=== PATIENT | female | born 1965 | race Caucasian/White ===

== ENCOUNTER 2017-09-17 19:33 | Emergency (ER) | payer OTHER ==
[~2017-09-17] VITALS: Ht 152.4 cm; Wt 91.2 kg
[2017-09-17] MEDS ORDERED: ATEN25 PO (20:02)
[2017-09-17] MEDS ORDERED: METF500 PO (20:03)
[2017-09-17] MEDS ORDERED: LISI20 PO (20:03)
[2017-09-17] MEDS ORDERED: Crutch1 EACH MISC (23:25)
== END 2017-09-17 23:30 | disposition home or self-care (01) ==
LOC: ER 19:33
DX: S80.12XA Contusion of left lower leg, initial encounter (principal); W19.XXXA Unspecified fall, initial encounter; Z79.899 Other long term (current) drug therapy; Z79.84 Long term (current) use of oral hypoglycemic drugs; E11.40 Type 2 diabetes mellitus with diabetic neuropathy, unspecified
CPT/HCPCS: 73564; 73590; 93971; J7030

== ENCOUNTER 2018-08-12 04:30 | Inpatient (IN) | payer OTHER ==
[~2018-08-12] VITALS: Ht 154.9 cm; Wt 101.9 kg
[~2018-08-12 04:30] MED LIST: ATEN25 PO; CEPH500 PO; CYCL10 PO; Crutch1 EACH MISC; DOXY100 PO; LISI20 PO; METF500 PO; POTA10T PO
[2018-08-12 06:48] LABS: BASOPHILS ABSOLUTE AUTO 0.04 K/mm3 (0.00-0.23); BASOPHILS PERCENT AUTO 0 % (0-2); EOSINOPHILS ABSOLUTE AUTO 0.03 K/mm3 (0.00-0.68); EOSINOPHILS PERCENT AUTO 0 % (0-6); Hematocrit 39.6 % (33.0-51.0); Hemoglobin 13.6 g/dL (11.5-16.0); IMMATURE GRAN ABSOLUTE AUTO 0.03 K/mm3 (0.00-0.10); IMMATURE GRAN PERCENT AUTO 0 % (0-1); LYMPHOCYTES ABSOLUTE AUTO 1.35 K/mm3 (0.84-5.20); LYMPHOCYTES PERCENT AUTO 15 % (21-46); MONOCYTES ABSOLUTE AUTO 1.23 K/mm3 (0.16-1.47); MONOCYTES PERCENT AUTO 13 % (4-13); Mean Corpuscular HGB 31.6 pg (26.0-34.0); Mean Corpuscular HGB Conc 34.3 g/dL (31.5-36.5); Mean Corpuscular Volume 92 fL (80-100); Mean Platelet Volume 9.7 fL (9.1-12.4); NEUTROPHILS ABSOLUTE AUTO 6.55 K/mm3 (1.96-9.15); NEUTROPHILS PERCENT AUTO 71 % (41-73); Platelet Count 122 K/mm3 (150-400); RDW Coefficient Variation 13.4 % (11.7-14.2); RDW Standard Deviation 45.1 fL (35.1-46.3); White Blood Cell Count 9.23 K/mm3 (4.00-11.30)
[2018-08-12 07:10] LABS: Alanine Aminotransfer (ALT/SGP 46 U/L (12-78); Albumin, Blood 2.9 g/dL (3.4-5.0); Albumin/Globulin Ratio 0.7 (0.8-1.8); Alk Phos 95 U/L (50-136); Anion Gap 7 mmol/L (6-16); Aspartate Aminotrans (AST/SGOT 40 U/L (12-37); Bilirubin, Total 1.5 mg/dL (0.1-1.0); Blood Urea Nitrogen 6 mg/dL (8-24); Bun/Creatinine Ratio 12.5 (12.0-20.0); CO2, Blood 26 mmol/L (21-32); Calcium, Blood 8.6 mg/dL (8.5-10.1); Chloride, Blood 105 mmol/L (98-108); Creatinine, Blood 0.48 mg/dL (0.40-1.00); Globulin, Blood 4.3 g/dL (2.2-4.0); Glomerular Filtration Rate >60 (60-); Glucose, Blood 100 mg/dL (70-99); Potassium, Blood 3.1 mmol/L (3.5-5.5); Sodium, Blood 138 mmol/L (136-145); Total Protein, Blood 7.2 g/dL (6.4-8.2)
[2018-08-12] MEDS ORDERED: Prinivil10 MG PO (13:09)
[2018-08-12] MEDS ORDERED: NITR100CA PO (13:09)
[2018-08-12] MEDS ORDERED: Pyridium100 MG PO (13:10)
[2018-08-12] MEDS ORDERED: METF500C PO (17:15)
[2018-08-12] MEDS ORDERED: GABA800 PO (17:16)
--- NOTE | 2018-08-12 19:00 | NUR ---
SHIFT SUMMARY: PT IS A&O. BED ALARM ON FOR SAFETY. CALL LIGHT IN REACH. SHE IS ABLE TO MAKE NEEDS KNOWN. TOLERATING PO INTAKE. WILL CTM UNTIL REPORT GIVEN TO NEXT RN.
[2018-08-12 20:28] LABS: Appearance, Urine Hazy (Clear); Bilirubin, Urine Neg (Neg); Blood, Urine 5+ (Neg); Color, Urine Amber (P-Yellow); Glucose Qualitative, Urine 4+ (Neg); Ketones, Urine Neg (Neg); Leukocyte Esterase, Urine 3+ (Neg); Nitrite, Urine Neg (Neg); Protein, Urine 2+ (Neg); Specific Gravity, Urine 1.005 (1.003-1.022); Urobilinogen, Urine 2+ (Normal)
[2018-08-12 20:39] LABS: Bacteria Many /hpf; Red Blood Cells, Urine TNTC /hpf (0-2); Squamous Epithelial Cells Few /hpf (Few)
[2018-08-13 04:56] LABS: BASOPHILS ABSOLUTE AUTO 0.03 K/mm3 (0.00-0.23); BASOPHILS PERCENT AUTO 1 % (0-2); EOSINOPHILS ABSOLUTE AUTO 0.09 K/mm3 (0.00-0.68); EOSINOPHILS PERCENT AUTO 2 % (0-6); Hematocrit 35.9 % (33.0-51.0); Hemoglobin 12.1 g/dL (11.5-16.0); IMMATURE GRAN ABSOLUTE AUTO 0.02 K/mm3 (0.00-0.10); IMMATURE GRAN PERCENT AUTO 0 % (0-1); LYMPHOCYTES ABSOLUTE AUTO 1.46 K/mm3 (0.84-5.20); LYMPHOCYTES PERCENT AUTO 24 % (21-46); MONOCYTES ABSOLUTE AUTO 0.72 K/mm3 (0.16-1.47); MONOCYTES PERCENT AUTO 12 % (4-13); Mean Corpuscular HGB 31.6 pg (26.0-34.0); Mean Corpuscular HGB Conc 33.7 g/dL (31.5-36.5); Mean Corpuscular Volume 94 fL (80-100); Mean Platelet Volume 9.1 fL (9.1-12.4); NEUTROPHILS ABSOLUTE AUTO 3.72 K/mm3 (1.96-9.15); NEUTROPHILS PERCENT AUTO 62 % (41-73); Platelet Count 94 K/mm3 (150-400); RDW Coefficient Variation 13.5 % (11.7-14.2); RDW Standard Deviation 46.4 fL (35.1-46.3); Red Blood Cell Count 3.83 M/mm3 (3.80-5.20); White Blood Cell Count 6.04 K/mm3 (4.00-11.30)
[2018-08-13 05:10] LABS: Anion Gap 7 mmol/L (6-16); Blood Urea Nitrogen 11 mg/dL (8-24); Bun/Creatinine Ratio 21.3 (12.0-20.0); CO2, Blood 26 mmol/L (21-32); Calcium, Blood 7.7 mg/dL (8.5-10.1); Chloride, Blood 107 mmol/L (98-108); Creatinine, Blood 0.52 mg/dL (0.40-1.00); Glomerular Filtration Rate >60 (60-); Glucose, Blood 113 mg/dL (70-99); Magnesium, Blood 1.8 mg/dL (1.6-2.4); Potassium, Blood 3.3 mmol/L (3.5-5.5); Sodium, Blood 140 mmol/L (136-145)
--- NOTE | 2018-08-13 05:44 | NUR ---
SHIFT SUMMARY PT VERY DROWSY. C/O PAIN IN L EAR AND MEDICATED PER EMAR X1 AND SHE FELL ASLEEP RIGHT AFTER ADMINISTRATION. SCD'S IN PLACE. SBA TO BSC. SHE SLEPT THROUGH NIGHT. CALL LIGHT IN REACH
--- NOTE | 2018-08-13 16:36 | NUR ---
SHIFT SUMMARY PT IS ADMITTED FOR CELLULITIS OF LFT EAR. STATES SHE HAS SEVERE PAIN FREQUENTLY. SHE HAS A HX OF DM 2 AND IS ACHS - LOW SS. . HX INCLUDES METH USE, PANCREATIC TUMOR, ME, CIRROSIS FROM ETOH AND HEP C. LR IS RUNNING AT 150 ML/HR. SHE IS A&O X4.SHE IS ON ZOSYN IV ANTIBIOTICS. ADA DIET. SHE IS A 1 PERSON ASSIST TO BSC DUE TO DROWSINESS. SHE HAS NOT NEEDED INSULIN COVERAGE THIS SHIFT.
[2018-08-14 05:31] LABS: BASOPHILS ABSOLUTE AUTO 0.04 K/mm3 (0.00-0.23); BASOPHILS PERCENT AUTO 1 % (0-2); EOSINOPHILS ABSOLUTE AUTO 0.18 K/mm3 (0.00-0.68); EOSINOPHILS PERCENT AUTO 4 % (0-6); Hematocrit 36.5 % (33.0-51.0); IMMATURE GRAN ABSOLUTE AUTO 0.01 K/mm3 (0.00-0.10); IMMATURE GRAN PERCENT AUTO 0 % (0-1); LYMPHOCYTES ABSOLUTE AUTO 1.37 K/mm3 (0.84-5.20); LYMPHOCYTES PERCENT AUTO 27 % (21-46); MONOCYTES PERCENT AUTO 14 % (4-13); Mean Corpuscular HGB 31.1 pg (26.0-34.0); Mean Corpuscular HGB Conc 32.9 g/dL (31.5-36.5); Mean Corpuscular Volume 95 fL (80-100); Mean Platelet Volume 9.8 fL (9.1-12.4); NEUTROPHILS ABSOLUTE AUTO 2.77 K/mm3 (1.96-9.15); NEUTROPHILS PERCENT AUTO 55 % (41-73); Platelet Count 98 K/mm3 (150-400); RDW Coefficient Variation 13.5 % (11.7-14.2); RDW Standard Deviation 46.6 fL (35.1-46.3); Red Blood Cell Count 3.86 M/mm3 (3.80-5.20); White Blood Cell Count 5.07 K/mm3 (4.00-11.30)
[2018-08-14 05:53] LABS: Alanine Aminotransfer (ALT/SGP 34 U/L (12-78); Albumin, Blood 2.2 g/dL (3.4-5.0); Albumin/Globulin Ratio 0.6 (0.8-1.8); Alk Phos 136 U/L (50-136); Anion Gap 5 mmol/L (6-16); Aspartate Aminotrans (AST/SGOT 33 U/L (12-37); Bilirubin, Total 0.5 mg/dL (0.1-1.0); Blood Urea Nitrogen 12 mg/dL (8-24); Bun/Creatinine Ratio 22.8 (12.0-20.0); CO2, Blood 29 mmol/L (21-32); Calcium, Blood 8.1 mg/dL (8.5-10.1); Chloride, Blood 109 mmol/L (98-108); Creatinine, Blood 0.53 mg/dL (0.40-1.00); Globulin, Blood 3.7 g/dL (2.2-4.0); Glomerular Filtration Rate >60 (60-); Glucose, Blood 146 mg/dL (70-99); Potassium, Blood 3.3 mmol/L (3.5-5.5); Sodium, Blood 143 mmol/L (136-145); Total Protein, Blood 5.9 g/dL (6.4-8.2)
--- NOTE | 2018-08-14 07:20 | NUR ---
SHIFT SUMMARY PT A/O. INDEPENDENT TO BA. HAD AN INCIDENT OF EXPLOSIVE DIARRHEA SHE WAS INCONT OF. C/O PAIN X1 AND MEDICATED PER EMAR AND SHE WAS ABLE TO SLEEP AFTER THAT. CALL LIGHT IN REACH
--- NOTE | 2018-08-14 16:38 | NUR ---
SHIFT SUMMARY ADMITTED FOR CELLULITIS. IV ANTIBIOTIC TX. PT STILL HAVING DIARRHEA THROUGHOUT SHIFT, ALTHOUGH THE VOLUME HAS REDUCED SIGNIFICANTLY. PT'S PAIN IS WELL CONTROLLED WITH TOREDOL. PT WILL NOT FOLLOW ADA DIET, HER FAMILY DOES BRING IN CANDY AND SODAS, FAST FOOD FROM OUTSIDE THE HOSPITAL. HER BLOOD SUGARS HAVE NOT BEEN ELEVATED OR REQUIRED INSULIN COVERAGE. PT IS A FULL CODE, HX OF DM2 (ACHS ON LOW SS). PT RESPONDS WELL TO THE EARDROPS PRESCRIBED FOR HER INVOLVED EAR. NO REMARKABLE CHANGES, WILL CONTINUE TO MONITOR.
--- NOTE | 2018-08-14 20:47 | NUR ---
CALL LIGHT IN REACH, INDEPENDANT. DOESNT WANT A SHOWER NOR TEETH BRUSHED. IN BED WATCHING TV. ATE DINNER (100%) DRANK 400 ML.
--- NOTE | 2018-08-15 04:22 | NUR ---
PATIENT REPORRTS NAUSEA, GAVE ZOFRAN PER EMAR
[2018-08-15 04:55] LABS: BASOPHILS ABSOLUTE AUTO 0.03 K/mm3 (0.00-0.23); BASOPHILS PERCENT AUTO 1 % (0-2); EOSINOPHILS PERCENT AUTO 6 % (0-6); Hematocrit 35.7 % (33.0-51.0); IMMATURE GRAN ABSOLUTE AUTO 0.01 K/mm3 (0.00-0.10); IMMATURE GRAN PERCENT AUTO 0 % (0-1); LYMPHOCYTES ABSOLUTE AUTO 1.12 K/mm3 (0.84-5.20); LYMPHOCYTES PERCENT AUTO 32 % (21-46); MONOCYTES ABSOLUTE AUTO 0.45 K/mm3 (0.16-1.47); MONOCYTES PERCENT AUTO 13 % (4-13); Mean Corpuscular HGB 31.7 pg (26.0-34.0); Mean Corpuscular HGB Conc 33.6 g/dL (31.5-36.5); Mean Corpuscular Volume 94 fL (80-100); Mean Platelet Volume 9.6 fL (9.1-12.4); NEUTROPHILS PERCENT AUTO 48 % (41-73); Platelet Count 101 K/mm3 (150-400); RDW Coefficient Variation 13.6 % (11.7-14.2); RDW Standard Deviation 47.3 fL (35.1-46.3); Red Blood Cell Count 3.78 M/mm3 (3.80-5.20); White Blood Cell Count 3.51 K/mm3 (4.00-11.30)
[2018-08-15 05:15] LABS: Alanine Aminotransfer (ALT/SGP 34 U/L (12-78); Albumin, Blood 2.1 g/dL (3.4-5.0); Albumin/Globulin Ratio 0.6 (0.8-1.8); Alk Phos 117 U/L (50-136); Anion Gap 7 mmol/L (6-16); Aspartate Aminotrans (AST/SGOT 49 U/L (12-37); Bilirubin, Total 0.5 mg/dL (0.1-1.0); Blood Urea Nitrogen 11 mg/dL (8-24); Bun/Creatinine Ratio 22.1 (12.0-20.0); CO2, Blood 27 mmol/L (21-32); Calcium, Blood 8.2 mg/dL (8.5-10.1); Chloride, Blood 110 mmol/L (98-108); Globulin, Blood 3.8 g/dL (2.2-4.0); Glomerular Filtration Rate >60 (60-); Glucose, Blood 108 mg/dL (70-99); Potassium, Blood 3.6 mmol/L (3.5-5.5); Sodium, Blood 144 mmol/L (136-145); Total Protein, Blood 5.9 g/dL (6.4-8.2)
[2018-08-15] MEDS ORDERED: CIPDEXSU LEFTEAR (13:10)
[2018-08-15] MEDS ORDERED: HYDR1TAB94 PO (13:10)
[2018-08-15] MEDS ORDERED: Amox Tr-K Clv1 EAC2 PO (13:11)
--- NOTE | 2018-08-15 14:55 | NUR ---
PT DISCHARGED THE PT DISCHARGED, WHILE THIS NURSE WAS CARING FOR ANOHER PT THE PT TOOK HER DISCHARGE INSTRUCTIONS AND PERSCRIPTION WITHOUT THE VERBAL DISCHARGE EDUCATION, THE PT REPORTED HAVEING A HEADAHE JUST BEFORE LEAVEING AND WAS MEDICATED FOR PAIN, THE PT APPEARED TO BE STEADY ON HER FEET AND APPEARED TO BE BREATHING EASILY ON RA
== END 2018-08-15 14:59 | disposition home or self-care (01) | DRG 155 ==
LOC: ER 04:30 → ERHOLD 04:31 → MEDS 17:01 → ENPENDDIS 08-15 12:51 → MEDS 08-15 14:59
PROVIDERS: Emergency Medicine; Internal Medicine; ADMIT Internal Medicine
DX: H60.12 Cellulitis of left external ear (principal); N39.0 Urinary tract infection, site not specified; H61.002 Unspecified perichondritis of left external ear; E11.9 Type 2 diabetes mellitus without complications; K70.30 Alcoholic cirrhosis of liver without ascites; I10 Essential (primary) hypertension; I25.2 Old myocardial infarction; Z86.718 Personal history of other venous thrombosis and embolism; B19.20 Unspecified viral hepatitis C without hepatic coma
CPT/HCPCS: 36415; 71046; 80048; 80053; 81001; 82947; 83036; 83605; 83735; 85025; 87040; 87077; 87086; 87186; 93005; 93010; 96365; 96375; 99284-25; A9270-GY; J0690; J1650; J1885; J2405; J2543; J3010; J7050; J7120

== ENCOUNTER → 2018-09-14 | Outpatient (CLI) | payer OTHER ==
[~2018-09-14] MED LIST changes: +Amox Tr-K Clv1 EAC2 PO; +CIPDEXSU LEFTEAR; +GABA800 PO; +HYDR1TAB94 PO; +METF500C PO; +NITR100CA PO; +Prinivil10 MG PO; +Pyridium100 MG PO
== END | disposition home or self-care (01) ==
LOC: LAB SHORT 17:53 → LAB EV 17:53
DX: R31.21 Asymptomatic microscopic hematuria (principal)
CPT/HCPCS: 87086

== ENCOUNTER 2019-01-20 02:39 | Emergency (ER) | payer OTHER ==
[~2019-01-20] VITALS: Ht 154.9 cm; Wt 93.0 kg
[2019-01-20 03:05] LABS: Source, Urine Clean Catch
[2019-01-20 03:07] LABS: Bilirubin, Urine Neg (Neg); Blood, Urine 4+ (Neg); Glucose Qualitative, Urine Neg (Neg); Ketones, Urine Neg (Neg); Leukocyte Esterase, Urine 3+ (Neg); Nitrite, Urine Neg (Neg); Protein, Urine Neg (Neg); Urobilinogen, Urine 1+ (Normal)
[2019-01-20 03:14] LABS: Appearance, Urine Hazy (Clear); Bacteria Mod /hpf; Color, Urine Yellow (P-Yellow); Squamous Epithelial Cells Rare /hpf (Few); White Blood Cells, Urine 25-50 /hpf (0-5)
[2019-01-20 03:23] LABS: BASOPHILS ABSOLUTE AUTO 0.04 K/mm3 (0.00-0.23); BASOPHILS PERCENT AUTO 1 % (0-2); EOSINOPHILS ABSOLUTE AUTO 0.16 K/mm3 (0.00-0.68); EOSINOPHILS PERCENT AUTO 3 % (0-6); Hematocrit 39.2 % (33.0-51.0); Hemoglobin 13.6 g/dL (11.5-16.0); IMMATURE GRAN ABSOLUTE AUTO 0.02 K/mm3 (0.00-0.10); IMMATURE GRAN PERCENT AUTO 0 % (0-1); LYMPHOCYTES ABSOLUTE AUTO 1.69 K/mm3 (0.84-5.20); LYMPHOCYTES PERCENT AUTO 30 % (21-46); MONOCYTES ABSOLUTE AUTO 0.72 K/mm3 (0.16-1.47); MONOCYTES PERCENT AUTO 13 % (4-13); Mean Corpuscular HGB 32.1 pg (26.0-34.0); Mean Corpuscular HGB Conc 34.7 g/dL (31.5-36.5); Mean Corpuscular Volume 93 fL (80-100); Mean Platelet Volume 9.6 fL (9.1-12.4); NEUTROPHILS ABSOLUTE AUTO 3.08 K/mm3 (1.96-9.15); NEUTROPHILS PERCENT AUTO 54 % (41-73); Platelet Count 154 K/mm3 (150-400); RDW Coefficient Variation 13.2 % (11.7-14.2); RDW Standard Deviation 44.6 fL (35.1-46.3); Red Blood Cell Count 4.24 M/mm3 (3.80-5.20); White Blood Cell Count 5.71 K/mm3 (4.00-11.30)
[2019-01-20 03:40] LABS: Alanine Aminotransfer (ALT/SGP 58 U/L (12-78); Albumin, Blood 2.8 g/dL (3.4-5.0); Albumin/Globulin Ratio 0.6 (0.8-1.8); Alk Phos 156 U/L (50-136); Anion Gap 8 mmol/L (6-16); Aspartate Aminotrans (AST/SGOT 55 U/L (12-37); Bilirubin, Total 0.5 mg/dL (0.1-1.0); Blood Urea Nitrogen 9 mg/dL (8-24); Bun/Creatinine Ratio 17.7 (12.0-20.0); CO2, Blood 26 mmol/L (21-32); Calcium, Blood 8.4 mg/dL (8.5-10.1); Chloride, Blood 110 mmol/L (98-108); Creatinine, Blood 0.51 mg/dL (0.40-1.00); Globulin, Blood 4.5 g/dL (2.2-4.0); Glomerular Filtration Rate >60 (60-); Glucose, Blood 205 mg/dL (70-99); Potassium, Blood 3.1 mmol/L (3.5-5.5); Sodium, Blood 144 mmol/L (136-145); Total Protein, Blood 7.3 g/dL (6.4-8.2)
[2019-01-20] MEDS ORDERED: Diflucan100 MG PO (04:28)
== END 2019-01-20 04:55 | disposition home or self-care (01) ==
LOC: ER 02:39
PROVIDERS: Emergency Medicine
DX: R10.11 Right upper quadrant pain (principal); E11.40 Type 2 diabetes mellitus with diabetic neuropathy, unspecified; Z86.19 Personal history of other infectious and parasitic diseases; Z87.442 Personal history of urinary calculi; Z79.899 Other long term (current) drug therapy
CPT/HCPCS: 80053; 81001; 83690; 85025; 87086; 96374; 96375; 99284-25; A9270; J2405; J3010

== ENCOUNTER 2023-04-16 20:50 | Emergency (ER) | payer MEDICAID ==
[~2023-04-16] VITALS: Ht 154.9 cm; Wt 83.9 kg
[~2023-04-16 20:50] MED LIST changes: +Diflucan100 MG PO
[2023-04-16] MEDS ORDERED: SULTRIDS (20:58)
[2023-04-16 21:06] LABS: BASOPHILS ABSOLUTE AUTO 0.05 K/mm3 (0.00-0.23); BASOPHILS PERCENT AUTO 1 % (0-2); EOSINOPHILS ABSOLUTE AUTO 0.08 K/mm3 (0.00-0.68); EOSINOPHILS PERCENT AUTO 1 % (0-6); Hematocrit 45.2 % (33.0-51.0); Hemoglobin 15.6 g/dL (11.5-16.0); IMMATURE GRAN ABSOLUTE AUTO 0.01 K/mm3 (0.00-0.10); IMMATURE GRAN PERCENT AUTO 0 % (0-1); LYMPHOCYTES ABSOLUTE AUTO 1.29 K/mm3 (0.84-5.20); LYMPHOCYTES PERCENT AUTO 19 % (21-46); MONOCYTES ABSOLUTE AUTO 0.94 K/mm3 (0.16-1.47); MONOCYTES PERCENT AUTO 14 % (4-13); Mean Corpuscular HGB 33.1 pg (26.0-34.0); Mean Corpuscular HGB Conc 34.5 g/dL (31.5-36.5); Mean Corpuscular Volume 96 fL (80-100); Mean Platelet Volume 9.6 fL (9.1-12.4); NEUTROPHILS PERCENT AUTO 66 % (41-73); Platelet Count 156 K/mm3 (150-400); RDW Coefficient Variation 13.4 % (11.7-14.2); Red Blood Cell Count 4.71 M/mm3 (3.80-5.20); White Blood Cell Count 6.87 K/mm3 (4.00-11.30)
[2023-04-16 21:29] LABS: Albumin, Blood 2.9 g/dL (3.4-5.0); Albumin/Globulin Ratio 0.6 (0.8-1.8); Bilirubin, Total 1.4 mg/dL (0.1-1.0); Calcium, Blood 10.9 mg/dL (8.5-10.1); Creatinine, Blood 0.93 mg/dL (0.40-1.00); Globulin, Blood 4.6 g/dL (2.2-4.0); Potassium, Blood 3.9 mmol/L (3.5-5.5); Total Protein, Blood 7.5 g/dL (6.4-8.2)
[2023-04-16 22:14] VITALS: BP 134/69
== END 2023-04-17 00:34 | disposition home or self-care (01) ==
LOC: ER 20:50
PROVIDERS: Emergency Medicine
DX: R07.9 Chest pain, unspecified (principal); Z88.0 Allergy status to penicillin; Z79.899 Other long term (current) drug therapy; E11.40 Type 2 diabetes mellitus with diabetic neuropathy, unspecified
CPT/HCPCS: 71046; 80053; 84484; 85025; 93005; 93010; 99285-25

== ENCOUNTER 2024-07-10 09:13 | Observation (INO) | payer MEDICAID ==
[~2024-07-10] VITALS: Ht 160 cm; Wt 81.4 kg
[~2024-07-10 09:13] MED LIST changes: +SULTRIDS
[2024-07-10 10:06] LABS: BASOPHILS ABSOLUTE AUTO 0.03 K/mm3 (0.00-0.23); BASOPHILS PERCENT AUTO 1 % (0-2); EOSINOPHILS ABSOLUTE AUTO 0.02 K/mm3 (0.00-0.68); EOSINOPHILS PERCENT AUTO 1 % (0-6); Hematocrit 34.7 % (33.0-51.0); Hemoglobin 12.5 g/dL (11.5-16.0); IMMATURE GRAN ABSOLUTE AUTO 0.01 K/mm3 (0.00-0.10); IMMATURE GRAN PERCENT AUTO 0 % (0-1); LYMPHOCYTES ABSOLUTE AUTO 0.38 K/mm3 (0.84-5.20); LYMPHOCYTES PERCENT AUTO 13 % (21-46); MONOCYTES ABSOLUTE AUTO 0.46 K/mm3 (0.16-1.47); MONOCYTES PERCENT AUTO 15 % (4-13); Mean Corpuscular HGB 34.3 pg (26.0-34.0); Mean Corpuscular Volume 95 fL (80-100); Mean Platelet Volume 9.9 fL (9.1-12.4); NEUTROPHILS ABSOLUTE AUTO 2.12 K/mm3 (1.96-9.15); NEUTROPHILS PERCENT AUTO 70 % (41-73); Platelet Count 91 K/mm3 (150-400); RDW Coefficient Variation 13.6 % (11.7-14.2); RDW Standard Deviation 48.2 fL (35.1-46.3); Red Blood Cell Count 3.64 M/mm3 (3.80-5.20); White Blood Cell Count 3.02 K/mm3 (4.00-11.30)
[2024-07-10 10:25] LABS: Albumin, Blood 2.8 g/dL (3.4-5.0); Albumin/Globulin Ratio 0.8 (0.8-1.8); Bilirubin, Total 1.6 mg/dL (0.1-1.0); Bun/Creatinine Ratio 17.9 (12.0-20.0); Calcium, Blood 10.2 mg/dL (8.5-10.1); Creatinine, Blood 0.61 mg/dL (0.40-1.00); Globulin, Blood 3.7 g/dL (2.2-4.0); Potassium, Blood 3.2 mmol/L (3.5-5.5); Total Protein, Blood 6.5 g/dL (6.4-8.2)
[2024-07-10] MEDS ORDERED: Potassium Chloride 20 MEQ TabCR PO ONE (10:35)
[2024-07-10 11:21] LABS: Influenza A, PCR NEGATIVE (NEGATIVE); Influenza B, PCR NEGATIVE (NEGATIVE); Resp Syncytial Virus, PCR NEGATIVE (NEGATIVE); SARS-Cov-2 (COVID-19) PCR, MMC NEGATIVE (NEGATIVE)
[2024-07-10] MEDS ORDERED: Bisacodyl 10 MG Supp PR PRN (11:55)
[2024-07-10] MEDS ORDERED: Ondansetron HCl 2 MG / ML 2ML Vial IV PRN (12:00)
[2024-07-10] MEDS ORDERED: FLU VACC TS2024-25(6MOS UP)/PF 45 MCG/0.5 ML SYRINGE IM SCH (12:00)
[2024-07-10] MEDS ORDERED: Furosemide 10 MG/ML 4ML Vial IV ONE (12:00)
[2024-07-10] MEDS ORDERED: TraZODone HCl 50 MG Tab PO PRN ×2 (12:00→22:05)
[2024-07-10] MEDS ORDERED: Magnesium Hydroxide Conc 10 ML UDC PO PRN (12:00)
[2024-07-10] MEDS ORDERED: HYDROmorphone HCl/Pf 1MG SYR IV PRN (12:05)
[2024-07-10] MEDS ORDERED: OxyCODONE HCL 5 MG TAB PO PRN (12:05)
[2024-07-10] MEDS ORDERED: Nitroglycerin 0.4 MG SUBL SL PRN (12:45)
[2024-07-10 12:48] LABS: Anti-Xa UFH, PHA Monitoring <0.10 IU/mL
[2024-07-10 12:55] LABS: International Normalized Ratio 1.29; Prothrombin Time Results 13.5 Sec (9.7-11.5)
[2024-07-10 13:08] LABS: Source, Urine Clean Catch
[2024-07-10 13:12] LABS: Appearance, Urine Clear (Clear); Bilirubin, Urine Neg (Neg); Blood, Urine 4+ (Neg); Color, Urine Yellow (P-Yellow); Glucose Qualitative, Urine Neg (Neg); Ketones, Urine Neg (Neg); Leukocyte Esterase, Urine 3+ (Neg); Nitrite, Urine Neg (Neg); Protein, Urine 2+ (Neg); Specific Gravity, Urine 1.015 (1.003-1.022); Urobilinogen, Urine 2+ (Normal)
[2024-07-10 13:19] LABS: Bacteria Many /hpf; Mucus Light (0-Heavy); Red Blood Cells, Urine 25-50 /hpf (0-2); Squamous Epithelial Cells Few /hpf (Few); White Blood Cells, Urine 50-100 /hpf (0-5)
[2024-07-10] MEDS ORDERED: Dose Adjust by Pharmacy XX STA (13:19)
[2024-07-10] MEDS ORDERED: Heparin Sodium 5000 Units/ML 1ML MDV IV ONE (13:20)
[2024-07-10] MEDS ORDERED: Heparin Sodium,Porcine/0.5 NS 500 ML IV SCH (13:20)
[2024-07-10 13:25] LABS: U Amphetamine Screen Not Detected; U Barbituate Screen Not Detected; U Benzodiazapine Screen Not Detected; U Buprenorphine Screen DETECTED; U Cannabinoids Screen Not Detected; U Cocaine Screen Not Detected; U Methadone Screen Not Detected; U Methamphetamine Screen Not Detected; U Opiates Screen Not Detected; U Oxycodone Screen Not Detected; U Phencyclidine Screen Not Detected
[2024-07-10 14:46] VITALS: BP 119/103
--- NOTE | 2024-07-10 15:59 | NUR ---
RED TINGED URINE NOTED IN TOILET AFTER TO VOIDED. PT STATES THAT SHE HAS NOT HAD ANY BLOOD IN HER URINE. THIS RN CONFIRMED WITH LAB THAT PUT URINE SAMPLE THAT WAS SENT UP EARLIER TODAY WAS YELLOW IN COLOR. PROVIDER NOTIFIED AND GAVE A VERBAL ORDER TO DC PTS HEPARIN. HEPARIN DC'D PER PROVIDER ORDERS.
[2024-07-10] MEDS ORDERED: Insulin Human Lispro 100 Units/ML 3ML Syringe SC SCH (16:30)
[2024-07-10 17:08] LABS: Bun/Creatinine Ratio 20.2 (12.0-20.0); Calcium, Blood 9.7 mg/dL (8.5-10.1); Creatinine, Blood 0.64 mg/dL (0.40-1.00); Magnesium, Blood 1.3 mg/dL (1.6-2.4); Potassium, Blood 3.5 mmol/L (3.5-5.5)
[2024-07-10 18:13] VITALS: BP 127/59
--- NOTE | 2024-07-10 18:42 | NUR ---
SHIFT SUMMARY: PT ARRIVED TO PCU6 FROM THE ED AT APPROS 1437. PT ARRIVES WITH HEPARIN GTT INFUSING. ABLE TO TRANSFER TO THE BED FROM THE [facility]. PT WANTS TO LAY DOWN AND SLEEP. ASSESSMENTS WERE ATTEMPTED BUT LIMITED INFORMATION WAS OBTAINED DUE TO PT COMPLIANCE. ECHO WAS PERFORMED AT BEDSIDE SHORTLY AFTER ARRIVAL. SEE PREVIOUS NOTE REGARDING HEPARIN GTT. PT REPORTS CP WHEN SHE IS LAYING FLAT ON HER BACK THAT IS RELIEVED WHEN SHE LAYS ON HER SIDE. NO OTHER SIGNIFICANT EVENTS HAPPENED SINCE ARRIVAL TO THIS UNIT. WILL CONTINUE TO CARE FOR PT TILL END OF SHIFT.
[2024-07-10 20:18] VITALS: BP 117/68
[2024-07-10] MEDS ORDERED: Acetaminophen 325 MG TABLET PO PRN (20:45)
[2024-07-10] MEDS ORDERED: Metoprolol Tartrate 25 MG Tab PO SCH (21:00)
[2024-07-10] MEDS ORDERED: Docusate Sodium 100 MG Cap PO SCH (21:00)
[2024-07-10] MEDS ORDERED: Lactobacil 2-S.Thermo-Bifido 1 1 Cap PO SCH (21:00)
[2024-07-10] MEDS ORDERED: Famotidine 20 MG Tab PO SCH (21:00)
[2024-07-10 23:29] VITALS: BP 133/79
[2024-07-11 03:43] VITALS: BP 123/58
[2024-07-11 04:09] LABS: BASOPHILS ABSOLUTE AUTO 0.04 K/mm3 (0.00-0.23); BASOPHILS PERCENT AUTO 1 % (0-2); EOSINOPHILS ABSOLUTE AUTO 0.02 K/mm3 (0.00-0.68); EOSINOPHILS PERCENT AUTO 1 % (0-6); Hematocrit 33.4 % (33.0-51.0); Hemoglobin 12.2 g/dL (11.5-16.0); IMMATURE GRAN ABSOLUTE AUTO 0.01 K/mm3 (0.00-0.10); IMMATURE GRAN PERCENT AUTO 0 % (0-1); LYMPHOCYTES PERCENT AUTO 27 % (21-46); MONOCYTES ABSOLUTE AUTO 0.47 K/mm3 (0.16-1.47); MONOCYTES PERCENT AUTO 16 % (4-13); Mean Corpuscular HGB 34.5 pg (26.0-34.0); Mean Corpuscular HGB Conc 36.5 g/dL (31.5-36.5); Mean Corpuscular Volume 94 fL (80-100); Mean Platelet Volume 9.9 fL (9.1-12.4); NEUTROPHILS ABSOLUTE AUTO 1.66 K/mm3 (1.96-9.15); NEUTROPHILS PERCENT AUTO 55 % (41-73); Platelet Count 81 K/mm3 (150-400); RDW Coefficient Variation 13.5 % (11.7-14.2); Red Blood Cell Count 3.54 M/mm3 (3.80-5.20)
[2024-07-11 04:27] LABS: Alanine Aminotransfer (ALT/SGP 26 U/L (12-78); Albumin, Blood 2.7 g/dL (3.4-5.0); Albumin/Globulin Ratio 0.8 (0.8-1.8); Alk Phos 107 U/L (50-136); Anion Gap 9 mmol/L (3-11); Aspartate Aminotrans (AST/SGOT 39 U/L (12-37); Bilirubin, Total 1.5 mg/dL (0.1-1.0); Blood Urea Nitrogen 14 mg/dL (8-24); Bun/Creatinine Ratio 21.1 (12.0-20.0); CHOL/HDL RATIO 2.8; CO2, Blood 24 mmol/L (21-32); Calcium, Blood 10.1 mg/dL (8.5-10.1); Chloride, Blood 111 mmol/L (98-108); Cholesterol 99 mg/dL (50-200); Creatinine, Blood 0.66 mg/dL (0.40-1.00); Globulin, Blood 3.4 g/dL (2.2-4.0); Glomerular Filtration Rate 100 (60-); Glucose, Blood 97 mg/dL (70-99); HDL Cholesterol 36 mg/dL (>39); LDL/HDL RATIO 1.4; Low Density Lipoprotein Chol 50 mg/dL (0-110); Magnesium, Blood 1.5 mg/dL (1.6-2.4); Potassium, Blood 3.2 mmol/L (3.5-5.5); Sodium, Blood 141 mmol/L (136-145); Total Protein, Blood 6.1 g/dL (6.4-8.2); Triglycerides 63 mg/dL (30-160); Very Low Density Lipoprot Chol 12 mg/dL (6-32)
[2024-07-11 04:36] LABS: PCO2 Arterial 32.6 mmHg (35-45); PO2 Arterial 76.9 mmHg (80-100); pH Blood Arterial 7.47 (7.35-7.45)
[2024-07-11] MEDS ORDERED: Mag Sulfate 1 GM/D5% 100ML 100 ML IV ONE (05:10)
--- NOTE | 2024-07-11 05:26 | NUR ---
SHIFT SUMMARY PT SOMNOLENT AT TIMES & O X4, OBEYS COMMANDS, HAVING DIFFICULTY RETAINING INSTRUCTION/NOT USING THE CALL LIGHT BEFORE GETTING OUT OF BED DESPITE MULTIPLE TIMES OF EDUCATION TO USE SAID CALL LIGHT AND SETTING THE BED ALARM OFF MULTIPLE TIMES, DISPLAYING ODD BEHAVIOR LIKE CALLING OUT OH PAIGE HELP ME AND WHEN ASKING PT WHAT SHE NEEDEDS HELP WITH SHE STATES NOT NEEDING ANYTHING, PT WILL ALSO STATE NOT FEELING WELL BUT DOES NOT ELABORATE WHEN ASKED, PT WALKING TO BRP 1 PERSON ASSIST. CONTINUOUS SPO2, SPO2 GREATER THAN 90% ON RA, NO SIGNS OF RESPIRATORY DISTRESS NOTED. CONTINUOUS TELE MONITORING, HR 60-80 WHILE AT REST, 100 S WITH ACTIVITY, DID HAVE HR IN 130 S WHILE PT WAS AGITATED LOOKING FOR NASAL SPRAY IN HER PURSE SAYING SHE NEEDS IT TO BREATH /PT EDUCATED TO NOT USE ANY OUTSIDE MEDICATIONS AND ALL MEDICATIONS THIS RN FOUND WERE PLACED INTO A BAG AND LOCKED INTO PT DRAWER, BP STABLE WITH MAP GREATER THAN 65, PT REPORTING INTERMINENT CHEST PAIN/ PT REPORTS THE PAIN IS IN HER LEFT ARM AND PT POINTED TO JUST BELOW HER COLLAR BONE ON THE LEFT SIDE/ PT REPORTS THE PAIN IS THE SAME IT HAS BEEN AND WHEN PT ROLLED ONTO HER SIDE SHE STATES THAT PAIN GOES AWAY, PULSE PRESENT T/O. BOWL TONES PRESENT IN ALL 4Q, PT DENIES FEELINGS OF CONTIPATION/NAUSEA. PT HAVING FREQUENT URINATION T/O THIS SHIFT URINE COLOR INITIAL PINK BUT HAS BECAME MORE YELLOW T/O THE NIGHT. BED LOWEST POSITION, CALL LIGHT IN REACH, AWAITING TO GIVE REPORT TO ONCOMING RN.
[2024-07-11] MEDS ORDERED: Potassium Chloride 40 MEQ in NS 250 ML IV ONE (05:30)
[2024-07-11] MEDS ORDERED: NS 250 ML IV PRN (05:40)
[2024-07-11] MEDS ORDERED: OxyCODONE HCL 5 MG TAB PO PRN (08:05)
[2024-07-11 08:57] VITALS: BP 119/63
[2024-07-11] MEDS ORDERED: buprenorphine HCL 2 MG TAB.SUBL SL SCH (09:00)
[2024-07-11] MEDS ORDERED: Nitrofurantoin/Nitrofuran Mac 100 MG Cap PO SCH (09:00)
[2024-07-11] MEDS ORDERED: Regadenoson 0.4 MG/5 ML SYRINGE ONE (11:51)
--- NOTE | 2024-07-11 18:14 | NUR ---
PATIENT HAD A STRESS TEST TODAY, GOT A SHOWER AND HAD A GOOD APPETITE. NO MAJOR CHANGES
[2024-07-11 20:22] VITALS: BP 104/57
[2024-07-11 23:42] VITALS: BP 120/53
[2024-07-12 04:43] VITALS: BP 104/50
[2024-07-12 04:49] LABS: Hematocrit 32.9 % (33.0-51.0); Hemoglobin 11.6 g/dL (11.5-16.0)
[2024-07-12 05:11] LABS: Bun/Creatinine Ratio 23.5 (12.0-20.0); Calcium, Blood 10.4 mg/dL (8.5-10.1); Creatinine, Blood 0.6 mg/dL (0.40-1.00); Magnesium, Blood 1.8 mg/dL (1.6-2.4); Potassium, Blood 3.5 mmol/L (3.5-5.5)
--- NOTE | 2024-07-12 06:45 | NUR ---
NOC SHIFT SUMMARY NO ACUTE CHANGES OVERNIGHT. ORIENTED BUT FORGETFUL, BED ALARM IN PLACE. VSS ON RA. ABLE TO MAKE NEEDS KNOWN. FLAT AFFECT.
[2024-07-12 07:55] VITALS: BP 117/61
[2024-07-12] MEDS ORDERED: NITR100CA PO (09:32)
[2024-07-12 10:23] VITALS: BP 108/69
--- NOTE | 2024-07-12 10:27 | NUR ---
DISCHARGE this rn assumed care at 0700. vital signs stable. tele sinusbrady 56. patient is alert and oriented x4. neuro is intact. perrla. patient is able to make needs known and uses call light appropriately. denies pain, chest pain/pressure or shortness of breath. see shift assessment for further detials. md radford in to see patient this am and plan for patient to go home. this rn went over new medication, macrobid, and patient has the hard script. this rn went over it with the patient and patient daughter, kevon. the next dose of this medication is this evening. this rn went over the importance of calling and establishing with a primary care provider and patient has a list of providers from care management: daughter at bedside for this. patient left with all belongings and in no distress.
== END 2024-07-12 10:50 | disposition home or self-care (01) ==
LOC: ER 09:13 → PCU 09:14 → ER 11:53 → PCU 11:53
PROVIDERS: Student in an Organized Health Care Education/Training Program; ADMIT Hospitalist
DX: I25.118 Atherosclerotic heart disease of native coronary artery with other forms of angina pectoris (principal); I25.2 Old myocardial infarction; I11.0 Hypertensive heart disease with heart failure; I50.30 Unspecified diastolic (congestive) heart failure; Z88.0 Allergy status to penicillin; E11.40 Type 2 diabetes mellitus with diabetic neuropathy, unspecified
CPT/HCPCS: 0241U; 36415; 36600; 71045; 71260; 78452; 80048; 80053; 80061; 80320; 81001; 82803; 82947; 83036; 83735; 83880; 84484; 85014; 85018; 85025; 85379; 85520; 85610; 85730; 93005; 93010; 93017; 93306; 94762; 96365; 96375; 99285-25; A9270; A9500; G0378; J1644; J1940; J2785; J3475; J3480; J7050; Q9967

== ENCOUNTER 2024-08-04 23:16 | Emergency (ER) | payer MEDICAID ==
[~2024-08-04] VITALS: Ht 152.4 cm; Wt 59.0 kg
[2024-08-05 00:39] LABS: BASOPHILS ABSOLUTE AUTO 0.05 K/mm3 (0.00-0.23); BASOPHILS PERCENT AUTO 1 % (0-2); EOSINOPHILS ABSOLUTE AUTO 0.16 K/mm3 (0.00-0.68); EOSINOPHILS PERCENT AUTO 4 % (0-6); Hematocrit 36.6 % (33.0-51.0); Hemoglobin 13.4 g/dL (11.5-16.0); IMMATURE GRAN PERCENT AUTO 0 % (0-1); LYMPHOCYTES ABSOLUTE AUTO 1.47 K/mm3 (0.84-5.20); LYMPHOCYTES PERCENT AUTO 35 % (21-46); MONOCYTES ABSOLUTE AUTO 0.65 K/mm3 (0.16-1.47); MONOCYTES PERCENT AUTO 16 % (4-13); Mean Corpuscular HGB 34.2 pg (26.0-34.0); Mean Corpuscular HGB Conc 36.6 g/dL (31.5-36.5); Mean Corpuscular Volume 93 fL (80-100); Mean Platelet Volume 10.2 fL (9.1-12.4); NEUTROPHILS ABSOLUTE AUTO 1.87 K/mm3 (1.96-9.15); NEUTROPHILS PERCENT AUTO 45 % (41-73); Platelet Count 89 K/mm3 (150-400); RDW Coefficient Variation 13.7 % (11.7-14.2); RDW Standard Deviation 46.6 fL (35.1-46.3); Red Blood Cell Count 3.92 M/mm3 (3.80-5.20)
[2024-08-05 00:58] LABS: Albumin, Blood 3.1 g/dL (3.4-5.0); Albumin/Globulin Ratio 0.9 (0.8-1.8); Bilirubin, Total 2.9 mg/dL (0.1-1.0); Bun/Creatinine Ratio 26.6 (12.0-20.0); Calcium, Blood 10.2 mg/dL (8.5-10.1); Creatinine, Blood 0.64 mg/dL (0.40-1.00); Globulin, Blood 3.6 g/dL (2.2-4.0); Potassium, Blood 2.8 mmol/L (3.5-5.5); Total Protein, Blood 6.7 g/dL (6.4-8.2)
[2024-08-05] MEDS ORDERED: Potassium Chl 20MEQ/Water100ML 100 ML IV SCH (01:05)
[2024-08-05] MEDS ORDERED: Potassium Chloride 20 MEQ/15 ML UDC PO ONE (01:05)
[2024-08-05 01:08] LABS: Magnesium, Blood 1.4 mg/dL (1.6-2.4)
[2024-08-05] MEDS ORDERED: Potassium Chloride 40 MEQ in NS 250 ML IV ONE (01:10)
--- NOTE | 2024-08-05 01:17 | NUR ---
CAll back. Pt was exhibiting signs of high anxiety as evidenced by quick speech patterns and fidgeting. PC introduced self and PC trainee Braxton. This creative services writer grasped pt's hand as a means of comfort and provided space for Jane to decompress, recalling the events of trauma experienced. PT was able to identify kasandra beliefs and utilize them as a coping mechanism for her experience. Specifications Checker acknowledged and normalized her situation. A supplication was supplied and the close of the visit and pt voiced gratitude. Pt appears to be grieving appropriately at this time.
[2024-08-05] MEDS ORDERED: Magnesium Oxide 400 MG Tab PO ONE (01:30)
[2024-08-05] MEDS ORDERED: Ondansetron HCl 2 MG / ML 2ML Vial IV ONE (02:50)
[2024-08-05] MEDS ORDERED: Aspirin 81 MG Chew PO ONE (02:50)
[2024-08-05] MEDS ORDERED: Acetaminophen 500 MG Tab PO ONE (02:50)
[2024-08-05 05:45] VITALS: BP 123/72
[2024-08-05] MEDS ORDERED: Mag Hydrox/AL Hydrox/Simeth 30 ML UDC PO ONE (06:05)
== END 2024-08-05 06:18 | disposition home or self-care (01) ==
LOC: ER 23:16
PROVIDERS: Student in an Organized Health Care Education/Training Program
DX: R07.9 Chest pain, unspecified (principal); E87.6 Hypokalemia; E83.42 Hypomagnesemia; Z77.22 Contact with and (suspected) exposure to environmental tobacco smoke (acute) (chronic); E11.40 Type 2 diabetes mellitus with diabetic neuropathy, unspecified; Z79.899 Other long term (current) drug therapy; Z88.0 Allergy status to penicillin
CPT/HCPCS: 71045; 80053; 83735; 84484; 85025; 93005; 93010; 96365; 96366; 96375; 99285-25; A9270; J2405; J3480; J7050

== ENCOUNTER 2024-09-18 01:18 | Emergency (ER) | payer OTHER ==
[~2024-09-18] VITALS: Ht 165.1 cm; Wt 77.1 kg
[2024-09-18 02:48] LABS: BASOPHILS ABSOLUTE AUTO 0.04 K/mm3 (0.00-0.23); BASOPHILS PERCENT AUTO 1 % (0-2); EOSINOPHILS ABSOLUTE AUTO 0.18 K/mm3 (0.00-0.68); EOSINOPHILS PERCENT AUTO 4 % (0-6); Hematocrit 36.1 % (33.0-51.0); Hemoglobin 12.9 g/dL (11.5-16.0); IMMATURE GRAN PERCENT AUTO 0 % (0-1); LYMPHOCYTES ABSOLUTE AUTO 1.73 K/mm3 (0.84-5.20); LYMPHOCYTES PERCENT AUTO 37 % (21-46); MONOCYTES ABSOLUTE AUTO 0.56 K/mm3 (0.16-1.47); MONOCYTES PERCENT AUTO 12 % (4-13); Mean Corpuscular HGB 33.6 pg (26.0-34.0); Mean Corpuscular HGB Conc 35.7 g/dL (31.5-36.5); Mean Corpuscular Volume 94 fL (80-100); NEUTROPHILS ABSOLUTE AUTO 2.17 K/mm3 (1.96-9.15); NEUTROPHILS PERCENT AUTO 46 % (41-73); Platelet Count 97 K/mm3 (150-400); RDW Coefficient Variation 13.7 % (11.7-14.2); Red Blood Cell Count 3.84 M/mm3 (3.80-5.20); White Blood Cell Count 4.68 K/mm3 (4.00-11.30)
[2024-09-18 02:54] LABS: International Normalized Ratio 1.21; Prothrombin Time Results 12.8 Sec (9.7-11.5)
[2024-09-18 02:57] LABS: Albumin, Blood 2.7 g/dL (3.4-5.0); Albumin/Globulin Ratio 0.8 (0.8-1.8); Bun/Creatinine Ratio 16.6 (12.0-20.0); Calcium, Blood 11.4 mg/dL (8.5-10.1); Creatinine, Blood 0.6 mg/dL (0.40-1.00); Globulin, Blood 3.4 g/dL (2.2-4.0); Potassium, Blood 2.9 mmol/L (3.5-5.5); Total Protein, Blood 6.1 g/dL (6.4-8.2)
[2024-09-18 03:37] LABS: Magnesium, Blood 1.6 mg/dL (1.6-2.4)
[2024-09-18] MEDS ORDERED: Aspirin 81 MG Chew PO ONE (03:40)
[2024-09-18] MEDS ORDERED: Magnesium Oxide 400 MG Tab PO ONE (04:15)
[2024-09-18] MEDS ORDERED: Potassium Chloride 20 MEQ TabCR PO ONE (04:15)
[2024-09-18] MEDS ORDERED: Ketorolac Tromethamine 30mg Vial IV ONE (04:15)
[2024-09-18 05:00] VITALS: BP 131/71
== END 2024-09-18 05:05 | disposition home or self-care (01) ==
LOC: ER 01:18
PROVIDERS: Emergency Medicine
DX: E83.42 Hypomagnesemia (principal); E87.6 Hypokalemia; I10 Essential (primary) hypertension; I25.2 Old myocardial infarction; E11.40 Type 2 diabetes mellitus with diabetic neuropathy, unspecified; Z88.0 Allergy status to penicillin; Z79.899 Other long term (current) drug therapy; Z59.89 Other problems related to housing and economic circumstances
CPT/HCPCS: 80053; 83735; 84484; 85025; 85610; 85730; 93005; 93010; 96374; 99284-25; A9270; J1885

== ENCOUNTER 2024-09-23 15:44 | Emergency (ER) | payer OTHER ==
[~2024-09-23] VITALS: Ht 154.9 cm; Wt 68.0 kg
[2024-09-23 15:51] VITALS: BP 127/70
[2024-09-23] MEDS ORDERED: FURO20 PO (15:57)
[2024-09-23] MEDS ORDERED: ATOR20 PO (15:59)
[2024-09-23] MEDS ORDERED: RIFA550T2 PO (16:00)
[2024-09-23] MEDS ORDERED: TRAZ150T57 PO (16:00)
[2024-09-23] MEDS ORDERED: SPIR25 PO (16:00)
[2024-09-23 17:13] LABS: BASOPHILS ABSOLUTE AUTO 0.02 K/mm3 (0.00-0.23); BASOPHILS PERCENT AUTO 1 % (0-2); EOSINOPHILS PERCENT AUTO 3 % (0-6); Hematocrit 36.4 % (33.0-51.0); Hemoglobin 12.7 g/dL (11.5-16.0); IMMATURE GRAN ABSOLUTE AUTO 0.01 K/mm3 (0.00-0.10); IMMATURE GRAN PERCENT AUTO 0 % (0-1); LYMPHOCYTES ABSOLUTE AUTO 0.94 K/mm3 (0.84-5.20); LYMPHOCYTES PERCENT AUTO 25 % (21-46); MONOCYTES ABSOLUTE AUTO 0.47 K/mm3 (0.16-1.47); MONOCYTES PERCENT AUTO 12 % (4-13); Mean Corpuscular HGB 33.2 pg (26.0-34.0); Mean Corpuscular HGB Conc 34.9 g/dL (31.5-36.5); Mean Corpuscular Volume 95 fL (80-100); Mean Platelet Volume 10.3 fL (9.1-12.4); NEUTROPHILS ABSOLUTE AUTO 2.27 K/mm3 (1.96-9.15); NEUTROPHILS PERCENT AUTO 60 % (41-73); Platelet Count 96 K/mm3 (150-400); RDW Coefficient Variation 13.6 % (11.7-14.2); RDW Standard Deviation 47.4 fL (35.1-46.3); Red Blood Cell Count 3.82 M/mm3 (3.80-5.20); White Blood Cell Count 3.81 K/mm3 (4.00-11.30)
[2024-09-23 17:25] LABS: Albumin, Blood 2.7 g/dL (3.4-5.0); Albumin/Globulin Ratio 0.8 (0.8-1.8); Calcium, Blood 10.4 mg/dL (8.5-10.1); Creatinine, Blood 0.56 mg/dL (0.40-1.00); Globulin, Blood 3.4 g/dL (2.2-4.0); Potassium, Blood 3.2 mmol/L (3.5-5.5); Total Protein, Blood 6.1 g/dL (6.4-8.2)
== END 2024-09-23 18:58 | disposition home or self-care (01) ==
LOC: ER 15:44
PROVIDERS: Emergency Medicine
DX: G51.0 Bell's palsy (principal); E11.40 Type 2 diabetes mellitus with diabetic neuropathy, unspecified; Z88.0 Allergy status to penicillin; Z79.899 Other long term (current) drug therapy; Z79.891 Long term (current) use of opiate analgesic; Z79.51 Long term (current) use of inhaled steroids; Z79.1 Long term (current) use of non-steroidal anti-inflammatories (NSAID)
CPT/HCPCS: 70450; 80053; 85025; 93005; 93010; 99284-25

== ENCOUNTER 2024-09-27 13:09 | Emergency (ER) | payer OTHER ==
[~2024-09-27] VITALS: Ht 152.4 cm; Wt 81.7 kg
[~2024-09-27 13:09] MED LIST changes: +ATOR20 PO; +FURO20 PO; +RIFA550T2 PO; +SPIR25 PO; +TRAZ150T57 PO
[2024-09-27 14:02] LABS: BASOPHILS ABSOLUTE AUTO 0.03 K/mm3 (0.00-0.23); BASOPHILS PERCENT AUTO 1 % (0-2); EOSINOPHILS ABSOLUTE AUTO 0.14 K/mm3 (0.00-0.68); EOSINOPHILS PERCENT AUTO 3 % (0-6); Hematocrit 40.9 % (33.0-51.0); Hemoglobin 14.2 g/dL (11.5-16.0); IMMATURE GRAN PERCENT AUTO 0 % (0-1); LYMPHOCYTES ABSOLUTE AUTO 1.42 K/mm3 (0.84-5.20); LYMPHOCYTES PERCENT AUTO 32 % (21-46); MONOCYTES ABSOLUTE AUTO 0.53 K/mm3 (0.16-1.47); MONOCYTES PERCENT AUTO 12 % (4-13); Mean Corpuscular HGB 33.6 pg (26.0-34.0); Mean Corpuscular HGB Conc 34.7 g/dL (31.5-36.5); Mean Corpuscular Volume 97 fL (80-100); Mean Platelet Volume 9.8 fL (9.1-12.4); NEUTROPHILS ABSOLUTE AUTO 2.39 K/mm3 (1.96-9.15); NEUTROPHILS PERCENT AUTO 53 % (41-73); Platelet Count 113 K/mm3 (150-400); RDW Coefficient Variation 13.8 % (11.7-14.2); RDW Standard Deviation 49.2 fL (35.1-46.3); Red Blood Cell Count 4.22 M/mm3 (3.80-5.20); White Blood Cell Count 4.51 K/mm3 (4.00-11.30)
[2024-09-27 14:28] LABS: Albumin/Globulin Ratio 0.8 (0.8-1.8); Bilirubin, Total 1.2 mg/dL (0.1-1.0); Bun/Creatinine Ratio 20.3 (12.0-20.0); Calcium, Blood 10.2 mg/dL (8.5-10.1); Creatinine, Blood 0.64 mg/dL (0.40-1.00); Globulin, Blood 3.8 g/dL (2.2-4.0); Potassium, Blood 3.2 mmol/L (3.5-5.5); Total Protein, Blood 6.8 g/dL (6.4-8.2)
[2024-09-27 15:30] VITALS: BP 119/74
== END 2024-09-27 21:17 | disposition home or self-care (01) ==
LOC: ER 13:09
PROVIDERS: Student in an Organized Health Care Education/Training Program
DX: G51.0 Bell's palsy (principal); R53.1 Weakness; E11.9 Type 2 diabetes mellitus without complications; Z79.899 Other long term (current) drug therapy; Z88.0 Allergy status to penicillin
CPT/HCPCS: 70450; 70551; 80053; 85025; 93005; 93010; 99284-25

== ENCOUNTER 2024-12-04 22:04 | Emergency (ER) | payer OTHER ==
[~2024-12-04] VITALS: Ht 152.4 cm; Wt 77.1 kg
[2024-12-04 23:04] LABS: BASOPHILS ABSOLUTE AUTO 0.03 K/mm3 (0.00-0.23); BASOPHILS PERCENT AUTO 1 % (0-2); EOSINOPHILS ABSOLUTE AUTO 0.11 K/mm3 (0.00-0.68); EOSINOPHILS PERCENT AUTO 3 % (0-6); Hematocrit 36.3 % (33.0-51.0); Hemoglobin 12.6 g/dL (11.5-16.0); IMMATURE GRAN ABSOLUTE AUTO 0.01 K/mm3 (0.00-0.10); IMMATURE GRAN PERCENT AUTO 0 % (0-1); LYMPHOCYTES ABSOLUTE AUTO 1.16 K/mm3 (0.84-5.20); LYMPHOCYTES PERCENT AUTO 35 % (21-46); MONOCYTES ABSOLUTE AUTO 0.36 K/mm3 (0.16-1.47); MONOCYTES PERCENT AUTO 11 % (4-13); Mean Corpuscular HGB Conc 34.7 g/dL (31.5-36.5); Mean Corpuscular Volume 98 fL (80-100); NEUTROPHILS ABSOLUTE AUTO 1.65 K/mm3 (1.96-9.15); NEUTROPHILS PERCENT AUTO 50 % (41-73); NRBC ABSOLUTE 0.00 K/mm3 (0.00-0.02); NRBC Auto 0.0 /100 WBC (0.0-0.2); Platelet Count 106 K/mm3 (150-400); RDW Coefficient Variation 14.5 % (11.7-14.2); RDW Standard Deviation 51.8 fL (35.1-46.3)
[2024-12-04 23:21] LABS: Alanine Aminotransfer (ALT/SGP 29.0 U/L (12-78); Albumin, Blood 2.5 g/dL (3.4-5.0); Albumin/Globulin Ratio 0.7 (0.8-1.8); Anion Gap 5.0 mmol/L (3-11); Aspartate Aminotrans (AST/SGOT 37.0 U/L (12-37); Bilirubin, Total 1.2 mg/dL (0.1-1.0); Blood Urea Nitrogen 9.0 mg/dL (8-24); CO2, Blood 26.0 mmol/L (21-32); Calcium, Blood 10.6 mg/dL (8.5-10.1); Chloride, Blood 114.0 mmol/L (98-108); Creatinine, Blood 0.7 mg/dL (0.40-1.00); Globulin, Blood 3.4 g/dL (2.2-4.0); Glucose, Blood 148.0 mg/dL (70-99); Potassium, Blood 2.8 mmol/L (3.5-5.5); Sodium, Blood 142.0 mmol/L (136-145); Total Protein, Blood 5.9 g/dL (6.4-8.2)
[2024-12-05 03:15] VITALS: BP 128/62
== END 2024-12-05 03:23 | disposition home or self-care (01) ==
LOC: ER 22:04
PROVIDERS: Student in an Organized Health Care Education/Training Program
DX: E87.6 Hypokalemia (principal); R53.1 Weakness; I10 Essential (primary) hypertension; E11.40 Type 2 diabetes mellitus with diabetic neuropathy, unspecified; Z86.73 Personal history of transient ischemic attack (TIA), and cerebral infarction without residual deficits; Z79.899 Other long term (current) drug therapy; Z88.0 Allergy status to penicillin
CPT/HCPCS: 36415; 71046; 80053; 83605; 83880; 84484; 85025; 99285-25; A9270

== ENCOUNTER 2024-12-07 17:15 | Emergency (ER) | payer OTHER ==
[~2024-12-07] VITALS: Ht 152.4 cm; Wt 83.9 kg
[2024-12-07] MEDS ORDERED: Ondansetron HCl 2 MG / ML 2ML Vial IV PRN (17:40)
[2024-12-07 18:50] LABS: BASOPHILS ABSOLUTE AUTO 0.03 K/mm3 (0.00-0.23); BASOPHILS PERCENT AUTO 1 % (0-2); EOSINOPHILS ABSOLUTE AUTO 0.12 K/mm3 (0.00-0.68); EOSINOPHILS PERCENT AUTO 2 % (0-6); Hematocrit 37.4 % (33.0-51.0); Hemoglobin 13.2 g/dL (11.5-16.0); IMMATURE GRAN ABSOLUTE AUTO 0.01 K/mm3 (0.00-0.10); IMMATURE GRAN PERCENT AUTO 0 % (0-1); LYMPHOCYTES ABSOLUTE AUTO 1.29 K/mm3 (0.84-5.20); LYMPHOCYTES PERCENT AUTO 26 % (21-46); MONOCYTES ABSOLUTE AUTO 0.52 K/mm3 (0.16-1.47); MONOCYTES PERCENT AUTO 11 % (4-13); Mean Corpuscular HGB Conc 35.3 g/dL (31.5-36.5); Mean Corpuscular Volume 96 fL (80-100); NEUTROPHILS ABSOLUTE AUTO 2.95 K/mm3 (1.96-9.15); NEUTROPHILS PERCENT AUTO 60 % (41-73); NRBC ABSOLUTE 0.00 K/mm3 (0.00-0.02); NRBC Auto 0.0 /100 WBC (0.0-0.2); Platelet Count 99 K/mm3 (150-400); RDW Coefficient Variation 14.6 % (11.7-14.2); RDW Standard Deviation 51.8 fL (35.1-46.3)
[2024-12-07 19:03] LABS: Alanine Aminotransfer (ALT/SGP 29.0 U/L (12-78); Albumin, Blood 2.6 g/dL (3.4-5.0); Albumin/Globulin Ratio 0.7 (0.8-1.8); Anion Gap 7.0 mmol/L (3-11); Aspartate Aminotrans (AST/SGOT 37.0 U/L (12-37); Bilirubin, Total 1.5 mg/dL (0.1-1.0); Blood Urea Nitrogen 9.0 mg/dL (8-24); CO2, Blood 24.0 mmol/L (21-32); Calcium, Blood 10.7 mg/dL (8.5-10.1); Chloride, Blood 115.0 mmol/L (98-108); Creatinine, Blood 0.59 mg/dL (0.40-1.00); Globulin, Blood 3.7 g/dL (2.2-4.0); Glucose, Blood 118.0 mg/dL (70-99); Potassium, Blood 3.2 mmol/L (3.5-5.5); Sodium, Blood 143.0 mmol/L (136-145); Total Protein, Blood 6.3 g/dL (6.4-8.2)
[2024-12-07] MEDS ORDERED: Potassium Chloride 10 Meq Tablet SA PO ONE (19:30)
[2024-12-07 21:36] VITALS: BP 125/57
[2024-12-07] MEDS ORDERED: RX Prepack Albuterol 1 PREPACK/6.7 GM INH UD ONE (21:40)
[2024-12-07] MEDS ORDERED: ONDA4ODT MM (21:40)
== END 2024-12-07 21:47 | disposition home or self-care (01) ==
LOC: ER 17:15
PROVIDERS: Emergency Medicine
DX: R07.89 Other chest pain (principal); I11.0 Hypertensive heart disease with heart failure; I50.9 Heart failure, unspecified; G89.29 Other chronic pain; E11.40 Type 2 diabetes mellitus with diabetic neuropathy, unspecified; Z86.73 Personal history of transient ischemic attack (TIA), and cerebral infarction without residual deficits; Z88.0 Allergy status to penicillin; Z79.899 Other long term (current) drug therapy
CPT/HCPCS: 71046; 80053; 83690; 83735; 83880; 84484; 85025; 93005; 93010; 96374; 99285-25; A9270; J2405

== ENCOUNTER 2025-01-07 14:33 | Inpatient (IN) | payer OTHER ==
[~2025-01-07] VITALS: Ht 157.5 cm; Wt 63.5 kg
[~2025-01-07 14:33] MED LIST changes: +NS 1,000 ML IV SCH; +ONDA4ODT MM
[2025-01-07 16:26] LABS: BASOPHILS ABSOLUTE AUTO 0.04 K/mm3 (0.00-0.23); BASOPHILS PERCENT AUTO 1 % (0-2); EOSINOPHILS ABSOLUTE AUTO 0.14 K/mm3 (0.00-0.68); EOSINOPHILS PERCENT AUTO 4 % (0-6); Hematocrit 43.3 % (33.0-51.0); Hemoglobin 15.1 g/dL (11.5-16.0); IMMATURE GRAN ABSOLUTE AUTO 0.03 K/mm3 (0.00-0.10); IMMATURE GRAN PERCENT AUTO 1 % (0-1); LYMPHOCYTES ABSOLUTE AUTO 1.26 K/mm3 (0.84-5.20); LYMPHOCYTES PERCENT AUTO 31 % (21-46); MONOCYTES ABSOLUTE AUTO 0.35 K/mm3 (0.16-1.47); MONOCYTES PERCENT AUTO 9 % (4-13); Mean Corpuscular HGB Conc 34.9 g/dL (31.5-36.5); Mean Corpuscular Volume 97 fL (80-100); NEUTROPHILS ABSOLUTE AUTO 2.20 K/mm3 (1.96-9.15); NEUTROPHILS PERCENT AUTO 55 % (41-73); NRBC ABSOLUTE 0.00 K/mm3 (0.00-0.02); NRBC Auto 0.0 /100 WBC (0.0-0.2); RDW Coefficient Variation 13.7 % (11.7-14.2); RDW Standard Deviation 49.1 fL (35.1-46.3)
[2025-01-07 16:37] LABS: Alanine Aminotransfer (ALT/SGP 33.0 U/L (12-78); Albumin, Blood 2.8 g/dL (3.4-5.0); Albumin/Globulin Ratio 0.7 (0.8-1.8); Anion Gap 5.0 mmol/L (3-11); Aspartate Aminotrans (AST/SGOT 39.0 U/L (12-37); Bilirubin, Total 1.5 mg/dL (0.1-1.0); Blood Urea Nitrogen 12.0 mg/dL (8-24); CO2, Blood 21.0 mmol/L (21-32); Calcium, Blood 10.2 mg/dL (8.5-10.1); Chloride, Blood 118.0 mmol/L (98-108); Creatinine, Blood 0.58 mg/dL (0.40-1.00); Globulin, Blood 4.0 g/dL (2.2-4.0); Glucose, Blood 171.0 mg/dL (70-99); Potassium, Blood 3.6 mmol/L (3.5-5.5); Sodium, Blood 140.0 mmol/L (136-145); Total Protein, Blood 6.8 g/dL (6.4-8.2)
[2025-01-07] MEDS ORDERED: Ondansetron HCl 2 MG / ML 2ML Vial IV ONE (16:40)
[2025-01-07 16:50] LABS: Platelet Count 96 K/mm3 (150-400)
[2025-01-07 18:53] LABS: Source, Urine Clean Catch
[2025-01-07 18:57] LABS: Bilirubin, Urine Neg (Neg); Color, Urine Yellow (P-Yellow); Glucose Qualitative, Urine Neg (Neg); Ketones, Urine Neg (Neg); Leukocyte Esterase, Urine 3+ (Neg); Protein, Urine 2+ (Neg); Specific Gravity, Urine 1.020 (1.003-1.022); Urobilinogen, Urine 1+ (Normal)
[2025-01-07 19:04] LABS: White Blood Cells, Urine 25-50 /hpf (0-5)
[2025-01-07] MEDS ORDERED: CefTRIAXone Sodium 2,000 MG in NS 100 ML IV ONE (23:15)
[2025-01-07] MEDS ORDERED: Ondansetron HCl 2 MG / ML 2ML Vial IV PRN (23:35)
[2025-01-07] MEDS ORDERED: Prochlorperazine Edisylate 10 mg Vial IV PRN (23:40)
[2025-01-08] MEDS ORDERED: ATEN25 PO (01:13)
[2025-01-08] MEDS ORDERED: CYCL10 PO (01:14)
[2025-01-08] MEDS ORDERED: TRAZ50 PO (01:15)
[2025-01-08] MEDS ORDERED: MELO7.5 PO (01:17)
[2025-01-08 02:15] VITALS: BP 143/119
[2025-01-08 02:34] LABS: BASOPHILS ABSOLUTE AUTO 0.03 K/mm3 (0.00-0.23); BASOPHILS PERCENT AUTO 1 % (0-2); EOSINOPHILS ABSOLUTE AUTO 0.10 K/mm3 (0.00-0.68); EOSINOPHILS PERCENT AUTO 3 % (0-6); Hematocrit 40.0 % (33.0-51.0); Hemoglobin 13.9 g/dL (11.5-16.0); IMMATURE GRAN ABSOLUTE AUTO 0.00 K/mm3 (0.00-0.10); IMMATURE GRAN PERCENT AUTO 0 % (0-1); LYMPHOCYTES ABSOLUTE AUTO 1.39 K/mm3 (0.84-5.20); LYMPHOCYTES PERCENT AUTO 34 % (21-46); MONOCYTES ABSOLUTE AUTO 0.33 K/mm3 (0.16-1.47); MONOCYTES PERCENT AUTO 8 % (4-13); Mean Corpuscular HGB Conc 34.8 g/dL (31.5-36.5); Mean Corpuscular Volume 97 fL (80-100); NEUTROPHILS ABSOLUTE AUTO 2.20 K/mm3 (1.96-9.15); NEUTROPHILS PERCENT AUTO 54 % (41-73); NRBC ABSOLUTE 0.00 K/mm3 (0.00-0.02); NRBC Auto 0.0 /100 WBC (0.0-0.2); Platelet Count 85 K/mm3 (150-400); RDW Coefficient Variation 13.6 % (11.7-14.2); RDW Standard Deviation 48.7 fL (35.1-46.3)
[2025-01-08 02:41] LABS: U Amphetamine Screen Not Detected; U Barbituate Screen Not Detected; U Benzodiazapine Screen Not Detected; U Buprenorphine Screen Not Detected; U Cannabinoids Screen Not Detected; U Cocaine Screen Not Detected; U Methadone Screen Not Detected; U Methamphetamine Screen Not Detected; U Opiates Screen Not Detected; U Oxycodone Screen Not Detected; U Phencyclidine Screen Not Detected
[2025-01-08 02:53] LABS: Alanine Aminotransfer (ALT/SGP 28.0 U/L (12-78); Albumin, Blood 2.7 g/dL (3.4-5.0); Albumin/Globulin Ratio 0.7 (0.8-1.8); Anion Gap 6.0 mmol/L (3-11); Aspartate Aminotrans (AST/SGOT 30.0 U/L (12-37); Bilirubin, Total 1.3 mg/dL (0.1-1.0); Blood Urea Nitrogen 12.0 mg/dL (8-24); CO2, Blood 23.0 mmol/L (21-32); Calcium, Blood 9.8 mg/dL (8.5-10.1); Chloride, Blood 116.0 mmol/L (98-108); Creatinine, Blood 0.58 mg/dL (0.40-1.00); Globulin, Blood 3.8 g/dL (2.2-4.0); Glucose, Blood 89.0 mg/dL (70-99); Potassium, Blood 3.4 mmol/L (3.5-5.5); Sodium, Blood 142.0 mmol/L (136-145); Total Protein, Blood 6.5 g/dL (6.4-8.2)
[2025-01-08 04:10] VITALS: BP 128/66
--- NOTE | 2025-01-08 06:46 | NUR ---
SHIFT SUMMARY PT ADMITTED FOR ACUTE ENCEPHALOPATHY UTI . PT IS ALERT AND ORIENTED TIMES 3. PT HAS RIGHT AC IV. PT DOES NOT REQUIRE SUPPLEMENTAL O2 . PT IS ONE PERSON ASSIST. PT HAS NS RUNNING AT 100/HR. PT IS RECEPTIVE TO CARE BED IN LOW POSITION, CALL LIGHT WITHIN REACH, RAILS TIMES 2.
[2025-01-08 07:37] VITALS: BP 130/68
[2025-01-08 08:33] VITALS: BP 116/77
[2025-01-08] MEDS ORDERED: Enoxaparin 40 MG/0.4 ML SYR SC SCH (09:00)
[2025-01-08] MEDS ORDERED: Lactobacil 2-S.Thermo-Bifido 1 1 Cap PO SCH (09:00)
--- NOTE | 2025-01-08 13:38 | NUR ---
THIS RN CALLED TO NOTIFY OF PT HAVING FREQUENT LOOSE STOOLS. PER PROVIDER, HOLD 1300 DOSE OF LACTULOSE.
[2025-01-08 14:35] VITALS: BP 107/66
--- NOTE | 2025-01-08 18:09 | NUR ---
SHIFT SUMMARY PT MENTATION IMPROVED T/O SHIFT, BUT CONT TO BE CONFUSED AT TIMES. PT NOW A&OX3, VSS, AMB W/ ASSIST, TOLERATING PO, VOIDING, AND DENIED PAIN. NS D/C AND 1 DOSE OF LACTULOSE HELD PER PROVIDER, SEE PREVIOUS NOTE. PT RECEIVED 2 LACTULOSE DOSES THIS SHIFT W/ GOOD OUTPUT. CALL LIGHT WITHIN REACH AND PT ABLE TO MAKE NEEDS KNOWN.
[2025-01-08 19:41] VITALS: BP 122/74
[2025-01-08] MEDS ORDERED: CefTRIAXone Sodium 1,000 MG in NS 100 ML IV SCH (21:00)
[2025-01-09 02:31] VITALS: BP 124/69
--- NOTE | 2025-01-09 05:10 | NUR ---
SHIFT SUMMARY PT ADMITTED FOR ACUTE ENCEPHALOPATHY UTI . PT IS ALERT AND ORIENTED TIMES 3. PT HAS POWER GLIDE LEFT UPPER ARM.. PT DOES NOT REQUIRE SUPPLEMENTAL O2 . PT IS ONE PERSON ASSIST. PT IS RECEPTIVE TO CARE. PT APPEARS TO HAVE SLEPT ON AND OFF THROUGH THE NIGHT. PT BED IN LOW POSITION, CALL LIGHT WITHIN REACH, RAILS TIMES 2.
[2025-01-09 07:36] VITALS: BP 130/78
[2025-01-09] MEDS ORDERED: SPIR25 PO (11:24)
[2025-01-09] MEDS ORDERED: LACT10SY PO (11:24)
--- NOTE | 2025-01-09 12:29 | NUR ---
D/C NOTE PT D/C HOME AT 1150. PT AND PT'S DAUGHTER PROVIDED W/ VERBAL AND WRITTEN INSTRUCTIONS AND REPORTED UNDERSTANDING. PT A&OX3-4 W/ CONFUSION AT TIMES, VSS, AMB IND, TOLERATING PO, VOIDING, AND DENIED PAIN. BELONGINGS WERE RETURNED. PT ESCOURTED OUT VIA W/C BY [facility]AZMYN CO[facility]EN DC [employer] FOR TRANSPORT HOME.
== END 2025-01-09 12:11 | disposition home or self-care (01) | DRG 442 ==
LOC: ER 14:33 → ERHOLD 23:24 → MEDS 01-08 02:07
PROVIDERS: Student in an Organized Health Care Education/Training Program; ADMIT Student in an Organized Health Care Education/Training Program
DX: K76.82 Hepatic encephalopathy (principal); D69.3 Immune thrombocytopenic purpura; N39.0 Urinary tract infection, site not specified; E87.20 Acidosis, unspecified; K76.6 Portal hypertension; I24.89 Other forms of acute ischemic heart disease; I25.10 Atherosclerotic heart disease of native coronary artery without angina pectoris; I11.0 Hypertensive heart disease with heart failure; I50.9 Heart failure, unspecified; M10.9 Gout, unspecified; E88.09 Other disorders of plasma-protein metabolism, not elsewhere classified; K74.60 Unspecified cirrhosis of liver; E78.5 Hyperlipidemia, unspecified; N20.0 Calculus of kidney; E11.9 Type 2 diabetes mellitus without complications; Z79.01 Long term (current) use of anticoagulants; Z86.73 Personal history of transient ischemic attack (TIA), and cerebral infarction without residual deficits; I25.2 Old myocardial infarction; Z88.0 Allergy status to penicillin; Z79.899 Other long term (current) drug therapy; Z87.19 Personal history of other diseases of the digestive system; Z98.891 History of uterine scar from previous surgery
CPT/HCPCS: 36415; 70450; 74177; 80053; 80320; 81001; 82140; 82330; 83605; 83690; 84484; 85025; 87086; 93005; 93010; 99285-25; A9270; C1751; J0696; J1650; J2405; J7030; Q9967

== ENCOUNTER 2025-02-09 19:21 | Emergency (ER) | payer OTHER ==
[~2025-02-09] VITALS: Ht 154.9 cm; Wt 72.6 kg
[~2025-02-09 19:21] MED LIST changes: +LACT10SY PO; +MELO7.5 PO; -NS 1,000 ML IV SCH; +TRAZ50 PO
[2025-02-10 01:18] LABS: BASOPHILS ABSOLUTE AUTO 0.03 K/mm3 (0.00-0.23); BASOPHILS PERCENT AUTO 1 % (0-2); EOSINOPHILS ABSOLUTE AUTO 0.14 K/mm3 (0.00-0.68); EOSINOPHILS PERCENT AUTO 2 % (0-6); Hematocrit 41.6 % (33.0-51.0); Hemoglobin 14.3 g/dL (11.5-16.0); IMMATURE GRAN ABSOLUTE AUTO 0.00 K/mm3 (0.00-0.10); IMMATURE GRAN PERCENT AUTO 0 % (0-1); LYMPHOCYTES ABSOLUTE AUTO 1.65 K/mm3 (0.84-5.20); LYMPHOCYTES PERCENT AUTO 27 % (21-46); MONOCYTES ABSOLUTE AUTO 0.77 K/mm3 (0.16-1.47); MONOCYTES PERCENT AUTO 13 % (4-13); Mean Corpuscular HGB Conc 34.4 g/dL (31.5-36.5); Mean Corpuscular Volume 98 fL (80-100); NEUTROPHILS ABSOLUTE AUTO 3.57 K/mm3 (1.96-9.15); NEUTROPHILS PERCENT AUTO 58 % (41-73); NRBC ABSOLUTE 0.00 K/mm3 (0.00-0.02); NRBC Auto 0.0 /100 WBC (0.0-0.2); Platelet Count 104 K/mm3 (150-400); RDW Coefficient Variation 14.0 % (11.7-14.2); RDW Standard Deviation 50.5 fL (35.1-46.3)
[2025-02-10 01:21] LABS: Source, Urine Clean Catch
[2025-02-10 01:39] LABS: Alanine Aminotransfer (ALT/SGP 24.0 U/L (12-78); Albumin, Blood 3.1 g/dL (3.4-5.0); Albumin/Globulin Ratio 0.8 (0.8-1.8); Anion Gap 7.0 mmol/L (3-11); Aspartate Aminotrans (AST/SGOT 28.0 U/L (12-37); Bilirubin, Total 1.3 mg/dL (0.1-1.0); Blood Urea Nitrogen 14.0 mg/dL (8-24); CO2, Blood 25.0 mmol/L (21-32); Calcium, Blood 10.9 mg/dL (8.5-10.1); Chloride, Blood 113.0 mmol/L (98-108); Creatinine, Blood 0.64 mg/dL (0.40-1.00); Globulin, Blood 3.7 g/dL (2.2-4.0); Glucose, Blood 96.0 mg/dL (70-99); Potassium, Blood 3.4 mmol/L (3.5-5.5); Sodium, Blood 142.0 mmol/L (136-145); Total Protein, Blood 6.8 g/dL (6.4-8.2)
[2025-02-10 01:39] LABS: Bilirubin, Urine Neg (Neg); Glucose Qualitative, Urine Neg (Neg); Ketones, Urine Neg (Neg); Leukocyte Esterase, Urine 3+ (Neg); Protein, Urine 2+ (Neg); Specific Gravity, Urine 1.025 (1.003-1.022); Urobilinogen, Urine 2+ (Normal)
[2025-02-10 01:45] LABS: Color, Urine Yellow (P-Yellow)
[2025-02-10 01:47] LABS: White Blood Cells, Urine 50-100 /hpf (0-5)
[2025-02-10] MEDS ORDERED: NS 1,000 ML IV SCH (02:00)
[2025-02-10] MEDS ORDERED: CEPH500 PO ×2 (02:14→05:34)
[2025-02-10] MEDS ORDERED: LACT10SY PO ×2 (02:14→05:35)
[2025-02-10 02:45] VITALS: BP 125/111
== END 2025-02-10 05:46 | disposition home or self-care (01) ==
LOC: ER 19:21
PROVIDERS: Physician Assistant
DX: N39.0 Urinary tract infection, site not specified (principal); E72.20 Disorder of urea cycle metabolism, unspecified; E11.40 Type 2 diabetes mellitus with diabetic neuropathy, unspecified; I10 Essential (primary) hypertension; Z86.73 Personal history of transient ischemic attack (TIA), and cerebral infarction without residual deficits; Z88.0 Allergy status to penicillin; Z79.899 Other long term (current) drug therapy
CPT/HCPCS: 73030; 80053; 81001; 82140; 85025; 87086; 99285-25; A9270; J7030

== ENCOUNTER 2025-02-18 17:38 | Emergency (ER) | payer OTHER ==
[~2025-02-18] VITALS: Ht 170.2 cm; Wt 79.4 kg
[2025-02-18 17:41] VITALS: BP 118/61
[2025-02-18] MEDS ORDERED: Ketorolac Tromethamine 30mg Vial IM ONE (17:50)
== END 2025-02-18 18:56 | disposition left against medical advice (07) ==
LOC: ER 17:38
DX: R50.9 Fever, unspecified (principal); Z53.29 Procedure and treatment not carried out because of patient's decision for other reasons
CPT/HCPCS: 96372; 99283-25; A9270; J1885

== ENCOUNTER 2025-03-19 12:19 | Emergency (ER) | payer OTHER ==
[~2025-03-19] VITALS: Ht 152.4 cm; Wt 79.4 kg
[2025-03-19 13:43] LABS: Alanine Aminotransfer (ALT/SGP 28.0 U/L (12-78); Albumin, Blood 2.9 g/dL (3.4-5.0); Albumin/Globulin Ratio 0.8 (0.8-1.8); Anion Gap 9.0 mmol/L (3-11); Aspartate Aminotrans (AST/SGOT 41.0 U/L (12-37); Bilirubin, Total 1.4 mg/dL (0.1-1.0); Blood Urea Nitrogen 11.0 mg/dL (8-24); CO2, Blood 21.0 mmol/L (21-32); Calcium, Blood 10.2 mg/dL (8.5-10.1); Chloride, Blood 113.0 mmol/L (98-108); Creatinine, Blood 0.56 mg/dL (0.40-1.00); Globulin, Blood 3.8 g/dL (2.2-4.0); Glucose, Blood 216.0 mg/dL (70-99); Potassium, Blood 3.6 mmol/L (3.5-5.5); Sodium, Blood 139.0 mmol/L (136-145); Total Protein, Blood 6.7 g/dL (6.4-8.2)
[2025-03-19 14:22] LABS: Prothrombin Time Results 12.4 Sec (9.7-11.5)
[2025-03-19 14:28] LABS: BASOPHILS ABSOLUTE AUTO 0.02 K/mm3 (0.00-0.23); BASOPHILS PERCENT AUTO 1 % (0-2); EOSINOPHILS ABSOLUTE AUTO 0.16 K/mm3 (0.00-0.68); EOSINOPHILS PERCENT AUTO 5 % (0-6); Hematocrit 39.4 % (33.0-51.0); Hemoglobin 13.6 g/dL (11.5-16.0); IMMATURE GRAN ABSOLUTE AUTO 0.01 K/mm3 (0.00-0.10); IMMATURE GRAN PERCENT AUTO 0 % (0-1); LYMPHOCYTES ABSOLUTE AUTO 1.08 K/mm3 (0.84-5.20); LYMPHOCYTES PERCENT AUTO 32 % (21-46); MONOCYTES ABSOLUTE AUTO 0.43 K/mm3 (0.16-1.47); MONOCYTES PERCENT AUTO 13 % (4-13); Mean Corpuscular HGB Conc 34.5 g/dL (31.5-36.5); Mean Corpuscular Volume 97 fL (80-100); NEUTROPHILS ABSOLUTE AUTO 1.69 K/mm3 (1.96-9.15); NEUTROPHILS PERCENT AUTO 50 % (41-73); NRBC ABSOLUTE 0.00 K/mm3 (0.00-0.02); NRBC Auto 0.0 /100 WBC (0.0-0.2); Platelet Count 96 K/mm3 (150-400); RDW Coefficient Variation 14.0 % (11.7-14.2); RDW Standard Deviation 49.4 fL (35.1-46.3)
[2025-03-19] MEDS ORDERED: RIFA550T2 PO ×2 (14:44→15:09)
[2025-03-19 15:00] VITALS: BP 112/73
== END 2025-03-19 15:13 | disposition home or self-care (01) ==
LOC: ER 12:19
PROVIDERS: Student in an Organized Health Care Education/Training Program
DX: K74.60 Unspecified cirrhosis of liver (principal); K76.6 Portal hypertension; E72.20 Disorder of urea cycle metabolism, unspecified; E11.40 Type 2 diabetes mellitus with diabetic neuropathy, unspecified; I10 Essential (primary) hypertension; I25.10 Atherosclerotic heart disease of native coronary artery without angina pectoris; I25.2 Old myocardial infarction; Z86.73 Personal history of transient ischemic attack (TIA), and cerebral infarction without residual deficits; Z88.0 Allergy status to penicillin; Z88.1 Allergy status to other antibiotic agents; Z79.899 Other long term (current) drug therapy
CPT/HCPCS: 74177; 80053; 82140; 83690; 85025; 85610; 85730; 99284-25; Q9967

== ENCOUNTER 2025-04-01 23:31 | Observation (INO) | payer OTHER ==
[~2025-04-01] VITALS: Ht 152.4 cm; Wt 85.2 kg
[2025-04-02 00:27] LABS: BASOPHILS ABSOLUTE AUTO 0.04 K/mm3 (0.00-0.23); BASOPHILS PERCENT AUTO 1 % (0-2); EOSINOPHILS ABSOLUTE AUTO 0.18 K/mm3 (0.00-0.68); EOSINOPHILS PERCENT AUTO 4 % (0-6); Hematocrit 38.7 % (33.0-51.0); Hemoglobin 13.5 g/dL (11.5-16.0); IMMATURE GRAN ABSOLUTE AUTO 0.01 K/mm3 (0.00-0.10); IMMATURE GRAN PERCENT AUTO 0 % (0-1); LYMPHOCYTES ABSOLUTE AUTO 1.60 K/mm3 (0.84-5.20); LYMPHOCYTES PERCENT AUTO 33 % (21-46); MONOCYTES ABSOLUTE AUTO 0.63 K/mm3 (0.16-1.47); MONOCYTES PERCENT AUTO 13 % (4-13); Mean Corpuscular HGB Conc 34.9 g/dL (31.5-36.5); Mean Corpuscular Volume 97 fL (80-100); NEUTROPHILS ABSOLUTE AUTO 2.47 K/mm3 (1.96-9.15); NEUTROPHILS PERCENT AUTO 50 % (41-73); NRBC ABSOLUTE 0.00 K/mm3 (0.00-0.02); NRBC Auto 0.0 /100 WBC (0.0-0.2); Platelet Count 123 K/mm3 (150-400); RDW Coefficient Variation 13.8 % (11.7-14.2); RDW Standard Deviation 49.3 fL (35.1-46.3)
[2025-04-02 00:37] LABS: Alanine Aminotransfer (ALT/SGP 29.0 U/L (12-78); Albumin, Blood 3.0 g/dL (3.4-5.0); Albumin/Globulin Ratio 0.8 (0.8-1.8); Anion Gap 8.0 mmol/L (3-11); Aspartate Aminotrans (AST/SGOT 39.0 U/L (12-37); Bilirubin, Total 1.0 mg/dL (0.1-1.0); Blood Urea Nitrogen 12.0 mg/dL (8-24); CO2, Blood 22.0 mmol/L (21-32); Calcium, Blood 11.4 mg/dL (8.5-10.1); Chloride, Blood 116.0 mmol/L (98-108); Creatinine, Blood 0.67 mg/dL (0.40-1.00); Globulin, Blood 3.8 g/dL (2.2-4.0); Glucose, Blood 131.0 mg/dL (70-99); Potassium, Blood 3.4 mmol/L (3.5-5.5); Sodium, Blood 143.0 mmol/L (136-145); Total Protein, Blood 6.8 g/dL (6.4-8.2)
[2025-04-02 00:43] LABS: Prothrombin Time Results 12.6 Sec (9.7-11.5)
[2025-04-02] MEDS ORDERED: Magnesium Sulf 2 GM/Water 50ML 50 ML IV ONE (01:00)
[2025-04-02] MEDS ORDERED: Potassium Chloride 10 Meq Tablet SA PO ONE (01:00)
[2025-04-02 01:04] LABS: Magnesium, Blood 1.8 mg/dL (1.6-2.4); Phosphorus, Blood 2.1 mg/dL (2.5-4.9)
[2025-04-02 01:06] LABS: D-Dimer, Quantitative 3.98 mg/L FEU (0.00-0.52)
[2025-04-02] MEDS ORDERED: Heparin Sodium,Porcine/0.5 NS 500 ML IV SCH (01:55)
[2025-04-02] MEDS ORDERED: Heparin Sodium 5000 Units/ML 1ML MDV IV ONE (01:55)
[2025-04-02] MEDS ORDERED: Ondansetron HCl 2 MG / ML 2ML Vial IV ONE (02:05)
[2025-04-02] MEDS ORDERED: FLU VACC TS2025-26(6MOS UP)/PF 45 MCG/0.5 ML SYRINGE IM SCH (02:10)
[2025-04-02 04:02] VITALS: BP 142/87
[2025-04-02 05:00] LABS: Magnesium, Blood 2.6 mg/dL (1.6-2.4); Phosphorus, Blood 2.4 mg/dL (2.5-4.9)
--- NOTE | 2025-04-02 05:10 | NUR ---
SHIFT SUMMARY: PATIENT ARRIVED TODAY AT 0350 THIS MORNING FROM ER. PATIENT IS A&OX4. ARTS AND CRAFTS TEACHER DEQUAN REPORTED HER RHYTHM TO BE SINUS WITH BBB AT 60'S BPM. PATIENT IS ON ROOM AIR WITH >90% SPO2. PATIENT CURRENTLY DENIES CHEST PAIN, PRESSURE, OR PALPATATIONS. HEPARIN GTT RUNNING AT 21.5 ML/HR PER JUL. PATIENT IS NPO AT THIS TIME PER ORDERS. PATIENT IS CURRENTLY LAYING IN BED WITH CALL LIGHT IN REACH. SHE CALLS APPROPRIATELY AND IS ABLE TO MAKE HER NEEDS KNOWN. CARDIOLOGY ANSWERING SERVICE WAS CALLED THIS MORNING DUE TO CARDIOLOGY CONSULT.
--- NOTE | 2025-04-02 05:52 | NUR ---
NOTIFIED DR. CALDERÓN OF PATIENTS LABS THIS MORNING WITH HER PHOSPHOROUS BEING 2.4 AND HER MAGNESIUM BEING 2.6 WITH THE PREVIOUS ONE READING 1.8 - AND ALSO ER HAD REPLUNISHED PATIENTS ELECTROLYTES IN THE ER PRIOR TO ARRIVAL ON THE UNIT. NO NEW ORDERS FROM MD AT THIS TIME.
[2025-04-02 06:34] LABS: BASOPHILS ABSOLUTE AUTO 0.05 K/mm3 (0.00-0.23); BASOPHILS PERCENT AUTO 1 % (0-2); EOSINOPHILS ABSOLUTE AUTO 0.19 K/mm3 (0.00-0.68); EOSINOPHILS PERCENT AUTO 4 % (0-6); Hematocrit 39.9 % (33.0-51.0); Hemoglobin 13.6 g/dL (11.5-16.0); IMMATURE GRAN ABSOLUTE AUTO 0.01 K/mm3 (0.00-0.10); IMMATURE GRAN PERCENT AUTO 0 % (0-1); LYMPHOCYTES ABSOLUTE AUTO 2.15 K/mm3 (0.84-5.20); LYMPHOCYTES PERCENT AUTO 40 % (21-46); MONOCYTES ABSOLUTE AUTO 0.74 K/mm3 (0.16-1.47); MONOCYTES PERCENT AUTO 14 % (4-13); Mean Corpuscular HGB Conc 34.1 g/dL (31.5-36.5); Mean Corpuscular Volume 98 fL (80-100); NEUTROPHILS ABSOLUTE AUTO 2.29 K/mm3 (1.96-9.15); NEUTROPHILS PERCENT AUTO 42 % (41-73); NRBC ABSOLUTE 0.00 K/mm3 (0.00-0.02); NRBC Auto 0.0 /100 WBC (0.0-0.2); Platelet Count 126 K/mm3 (150-400); RDW Coefficient Variation 13.9 % (11.7-14.2); RDW Standard Deviation 50.1 fL (35.1-46.3)
[2025-04-02 08:03] LABS: Source, Urine Clean Catch
[2025-04-02 08:06] VITALS: BP 125/67
[2025-04-02 08:11] LABS: Bilirubin, Urine Neg (Neg); Glucose Qualitative, Urine Neg (Neg); Ketones, Urine Neg (Neg); Leukocyte Esterase, Urine 1+ (Neg); Protein, Urine 2+ (Neg); Specific Gravity, Urine 1.015 (1.003-1.022); Urobilinogen, Urine 1+ (Normal)
[2025-04-02 08:26] LABS: Color, Urine Other (P-Yellow)
[2025-04-02 08:27] LABS: U Amphetamine Screen Not Detected; U Barbiturate Screen Not Detected; U Benzodiazapine Screen Not Detected; U Buprenorphine Screen Not Detected; U Cannabinoids Screen Not Detected; U Cocaine Screen Not Detected; U Methadone Screen Not Detected; U Methamphetamine Screen Not Detected; U Opiates Screen Not Detected; U Oxycodone Screen Not Detected; U Phencyclidine Screen Not Detected
[2025-04-02 08:38] LABS: Red Blood Cells, Urine TNTC /hpf (0-2)
[2025-04-02] MEDS ORDERED: CefTRIAXone Sodium 1,000 MG in NS 100 ML IV SCH (09:34)
[2025-04-02 09:38] LABS: Alanine Aminotransfer (ALT/SGP 26.0 U/L (12-78); Albumin, Blood 2.8 g/dL (3.4-5.0); Albumin/Globulin Ratio 0.8 (0.8-1.8); Anion Gap 6.0 mmol/L (3-11); Aspartate Aminotrans (AST/SGOT 28.0 U/L (12-37); Bilirubin, Total 1.1 mg/dL (0.1-1.0); Blood Urea Nitrogen 13.0 mg/dL (8-24); CO2, Blood 24.0 mmol/L (21-32); Calcium, Blood 10.6 mg/dL (8.5-10.1); Chloride, Blood 118.0 mmol/L (98-108); Creatinine, Blood 0.65 mg/dL (0.40-1.00); Globulin, Blood 3.4 g/dL (2.2-4.0); Glucose, Blood 102.0 mg/dL (70-99); Potassium, Blood 3.4 mmol/L (3.5-5.5); Sodium, Blood 145.0 mmol/L (136-145); Total Protein, Blood 6.2 g/dL (6.4-8.2)
[2025-04-02] MEDS ORDERED: Dose Adjust by Pharmacy XX STA (10:23)
[2025-04-02] MEDS ORDERED: Potassium Phosphate Dibasic 30 MM in Dextrose 5% 500 ML IV STA (10:59)
[2025-04-02 15:42] VITALS: BP 137/68
--- NOTE | 2025-04-02 18:38 | NUR ---
SHIFT SUMMARY: PT A&OX4. FOLLOWS COMMANDS AND MAKES NEEDS KNOWN TO STAFF. PT HAS BEEN ABLE TO GET UP TO THE BATHROOM WITH FWW. HAD BLOOD IN URINE THIS AM WHICH HAS SINCE RESOLVED WITH HEPARIN GTT DISCONTINUED. DENIES ANY COMPLAINTS OF CP, PRESSURE, TIGHTNESS OR SOB. VSS. MAP >65. NO SIGNIFICANT EVENTS HAPPENED DURING THIS SHIFT. WILL CONTINUE TO CARE FOR PT TILL END OF SHIFT.
[2025-04-02 20:02] VITALS: BP 108/61
[2025-04-02 23:55] VITALS: BP 134/80
[2025-04-03 03:49] VITALS: BP 114/51
[2025-04-03 04:29] LABS: BASOPHILS ABSOLUTE AUTO 0.03 K/mm3 (0.00-0.23); BASOPHILS PERCENT AUTO 1 % (0-2); EOSINOPHILS ABSOLUTE AUTO 0.20 K/mm3 (0.00-0.68); EOSINOPHILS PERCENT AUTO 6 % (0-6); Hematocrit 34.5 % (33.0-51.0); Hemoglobin 11.9 g/dL (11.5-16.0); IMMATURE GRAN ABSOLUTE AUTO 0.01 K/mm3 (0.00-0.10); IMMATURE GRAN PERCENT AUTO 0 % (0-1); LYMPHOCYTES ABSOLUTE AUTO 1.30 K/mm3 (0.84-5.20); LYMPHOCYTES PERCENT AUTO 36 % (21-46); MONOCYTES ABSOLUTE AUTO 0.46 K/mm3 (0.16-1.47); MONOCYTES PERCENT AUTO 13 % (4-13); Mean Corpuscular HGB Conc 34.5 g/dL (31.5-36.5); Mean Corpuscular Volume 98 fL (80-100); NEUTROPHILS ABSOLUTE AUTO 1.66 K/mm3 (1.96-9.15); NEUTROPHILS PERCENT AUTO 45 % (41-73); NRBC ABSOLUTE 0.00 K/mm3 (0.00-0.02); NRBC Auto 0.0 /100 WBC (0.0-0.2); Platelet Count 104 K/mm3 (150-400); RDW Coefficient Variation 13.8 % (11.7-14.2); RDW Standard Deviation 49.5 fL (35.1-46.3)
[2025-04-03 04:50] LABS: Albumin, Blood 2.6 g/dL (3.4-5.0); Anion Gap 8 mmol/L (3-11); Blood Urea Nitrogen 15 mg/dL (8-24); CO2, Blood 23 mmol/L (21-32); Calcium, Blood 11.2 mg/dL (8.5-10.1); Chloride, Blood 114 mmol/L (98-108); Creatinine, Blood 0.69 mg/dL (0.40-1.00); Glucose, Blood 114 mg/dL (70-99); Magnesium, Blood 1.8 mg/dL (1.6-2.4); Phosphorus, Blood 2.7 mg/dL (2.5-4.9); Potassium, Blood 3.7 mmol/L (3.5-5.5); Sodium, Blood 141 mmol/L (136-145)
--- NOTE | 2025-04-03 06:09 | NUR ---
SHIFT SUMMARY: PT IS A&OX3, COOPERATIVE WITH CARE. VSS ON RA. SR 70'S-80'S WITH 1ST DEGREE HB. C/O PAIN TO HER LUE, AND LLE, MEDICATED WITH PRN 650 MG PO TYLENOL. TOLERATING A HEART HEALTHY DIET. X1 ASSIST WITH 4WW TO BR. VOIDING ADEQUATE AMOUNTS OF YELLOW URINE, 24 HOUR URINE COLLECTION IN PROGRESS. X1 LOOSE BM THIS SHIFT, BRIEF IN PLACE. PT HAS HAD A TOTAL OF 3 LOOSE BM'S FOR THE DAY, SO PT REQUESTED TO NOT TAKE HER HS DOSE OF LACTULOSE. BED IN LOWEST POSITION, CALL LIGHT WITHIN REACH. CALLS APPROPRIATELY AND IS ABLE TO ADVOCATE NEEDS EFFECTIVELY.
[2025-04-03 08:35] VITALS: BP 117/52
[2025-04-03] MEDS ORDERED: Enoxaparin 40 MG/0.4 ML SYR SC SCH (09:00)
[2025-04-03] MEDS ORDERED: Isosorbide Mononitrate 30 MG TABCR PO SCH (09:00)
[2025-04-03 11:43] VITALS: BP 90/58
[2025-04-03] MEDS ORDERED: CARV3.125 (12:58)
[2025-04-03] MEDS ORDERED: Imdur30 MG PO (13:00)
[2025-04-03] MEDS ORDERED: CINA30 PO (13:03)
[2025-04-03] MEDS ORDERED: NITR.4SL SL (13:03)
[2025-04-03] MEDS ORDERED: ASPI81CH PO (13:05)
[2025-04-03 15:59] VITALS: BP 93/52
[2025-04-03 17:20] LABS: Calcium, Urine 27.5 mg/dL (< 17.5); Calcium, Urine Calculation 550.0 mg/24hrs (42.0-353.0)
[2025-04-03 18:15] VITALS: BP 94/50
--- NOTE | 2025-04-03 18:26 | NUR ---
SHIFT SUMMARY PATIENT AOX4 ABLE TO MAKE HER NEEDS KNOWN. TOLERATING HER MEALS AND SBA ASSIST TO THE RESTROOM. SHE DENIES CP AND SOB BUT DOES HAVE LAEFT ARM PAIN THAT THE DOCTOR IS AWARE OF. HER VITALS ARE STABLE EXCEPT HER BP IS LOW WITH A MAP OF 64. THE HOSPITALIST IS AWARE AND TONIGHTS DOSE OF COREG WAS HELD. THERE WAS A DISCHARGE ORDER PLACED BUT THE PATIENT DOES NOT WANT TO LEAVE UNTIL SHE HAS HER ZIO PATCH PLACED.
[2025-04-03 20:54] VITALS: BP 122/62
[2025-04-04 00:08] VITALS: BP 123/52
[2025-04-04 04:08] VITALS: BP 122/59
[2025-04-04 06:02] LABS: VITAMIN D,1,25-DIHYDROXY 90.5 pg/mL (19.9-79.3)
--- NOTE | 2025-04-04 06:27 | NUR ---
SHIFT SUMMARY: PT IS A&OX3, COOPERATIVE WITH CARE. VSS ON RA. SR 70'S-80'S WITH BBB. C/O DISCOMFORT TO HER LUE, DENIED TYLENOL BECAUSE SHE STATES IT ISN T GOOD FOR HER LIVER FAILURE.TOLERATING A HEART HEALTHY DIET. SBA WITH 4WW TO BR. VOIDING ADEQUATE AMOUNTS OF YELLOW URINE. PT HAD ONE LOOSE INCONTINENT BM THIS SHIFT, PULL-UP IN PLACE AND CHANGED NEEDED. PT DID NOT WANT TO TAKE HER HS DOSE OF LACTULOSE, I REMINDED PT ON THE IMPORTANCE OF IT, AND REMINDED HER THAT SHE HADN'T HAD A BM YET. SO THEN SHE AGREED TO TAKE IT. BED IN LOWEST POSITION, CALL LIGHT WITHIN REACH. CALLS APPROPRIATELY AND IS ABLE TO ADVOCATE NEEDS EFFECTIVELY.
[2025-04-04 09:44] VITALS: BP 117/52
--- NOTE | 2025-04-04 13:38 | NUR ---
SHIFT SUMMARY DISCHARGE PATIENT AOX4 ABLE TO MAKE NEEDS KNOWN. DENIES CP OR SOB. TOLERATING MEALS AND SBA TO THE RESTROOM WITH HER WALKER. HER VITALS ARE STABLE. HER DAUGHTER IS AT BEDSIDE AND TALKED TO THE HOSPITALIST. SHE HAD BENNY ZIO PATCH PLACE BEFORE DISCHARGE. ALL DISCHARGE INSTRUCTIONS WERE EXPLAINED TO PATIENT AND FAMILY.
[2025-04-08 20:21] LABS: PTHRP BY LC-MS/MS,PLASMA <2.0 pmol/L (0.0-3.4)
== END 2025-04-04 13:30 | disposition home or self-care (01) ==
LOC: ER 23:31 → PCU 23:32
PROVIDERS: Internal Medicine; Student in an Organized Health Care Education/Training Program; ADMIT Student in an Organized Health Care Education/Training Program
DX: I25.10 Atherosclerotic heart disease of native coronary artery without angina pectoris (principal); R07.89 Other chest pain; E87.6 Hypokalemia; K74.60 Unspecified cirrhosis of liver; K76.6 Portal hypertension; Z88.0 Allergy status to penicillin; Z88.8 Allergy status to other drugs, medicaments and biological substances
CPT/HCPCS: 36415; 71260; 80053; 80069; 81001; 82306; 82330; 82340; 82542; 82652; 82947; 83690; 83735; 83880; 83970; 84100; 84443; 84484; 85025; 85379; 85520; 85610; 85730; 87086; 93005; 93010; 93246; 93306; 93971; 96365-59; 96366; 96367; 96372; 96375; 96376; 99285-25; A9270; G0378; J0696; J1644; J1650; J2405; J3475; J7060; Q9967

== ENCOUNTER → 2025-04-08 | Outpatient (CLI) | payer OTHER ==
[~2025-04-08] MED LIST changes: +ASPI81CH PO; +CARV3.125; +CINA30 PO; +Imdur30 MG PO; +NITR.4SL SL
[2025-04-08 22:01] LABS: Alanine Aminotransfer (ALT/SGP 31 U/L (12-78); Albumin, Blood 2.9 g/dL (3.4-5.0); Albumin/Globulin Ratio 0.8 (0.8-1.8); Anion Gap 6 mmol/L (3-11); Aspartate Aminotrans (AST/SGOT 29 U/L (12-37); Bilirubin, Total 1.0 mg/dL (0.1-1.0); Blood Urea Nitrogen 15 mg/dL (8-24); CHOL/HDL RATIO 2.6; CO2, Blood 24 mmol/L (21-32); Calcium, Blood 11.3 mg/dL (8.5-10.1); Chloride, Blood 112 mmol/L (98-108); Cholesterol 134 mg/dL (50-200); Creatinine, Blood 0.55 mg/dL (0.40-1.00); Globulin, Blood 3.5 g/dL (2.2-4.0); Glucose, Blood 179 mg/dL (70-99); HDL Cholesterol 52 mg/dL (>39); LDL/HDL RATIO 1.2; Low Density Lipoprotein Chol 63 mg/dL (0-110); Potassium, Blood 3.3 mmol/L (3.5-5.5); Sodium, Blood 139 mmol/L (136-145); Total Protein, Blood 6.4 g/dL (6.4-8.2); Triglycerides 94 mg/dL (30-160); Very Low Density Lipoprot Chol 18 mg/dL (6-32)
== END | disposition home or self-care (01) ==
LOC: LAB SHORT 19:34 → LAB 19:34
PROVIDERS: Nurse Practitioner Family
DX: I11.0 Hypertensive heart disease with heart failure (principal); I50.9 Heart failure, unspecified
CPT/HCPCS: 80053; 80061

== ENCOUNTER 2025-05-07 11:04 | Inpatient (IN) | payer OTHER ==
[~2025-05-07] VITALS: Ht 157.5 cm; Wt 87.3 kg
[2025-05-07 12:27] LABS: BASOPHILS ABSOLUTE AUTO 0.03 K/mm3 (0.00-0.23); BASOPHILS PERCENT AUTO 1 % (0-2); EOSINOPHILS ABSOLUTE AUTO 0.07 K/mm3 (0.00-0.68); EOSINOPHILS PERCENT AUTO 2 % (0-6); Hematocrit 33.7 % (33.0-51.0); Hemoglobin 11.7 g/dL (11.5-16.0); IMMATURE GRAN ABSOLUTE AUTO 0.01 K/mm3 (0.00-0.10); IMMATURE GRAN PERCENT AUTO 0 % (0-1); LYMPHOCYTES ABSOLUTE AUTO 0.90 K/mm3 (0.84-5.20); LYMPHOCYTES PERCENT AUTO 19 % (21-46); MONOCYTES ABSOLUTE AUTO 0.45 K/mm3 (0.16-1.47); MONOCYTES PERCENT AUTO 9 % (4-13); Mean Corpuscular HGB Conc 34.7 g/dL (31.5-36.5); Mean Corpuscular Volume 98 fL (80-100); NEUTROPHILS ABSOLUTE AUTO 3.35 K/mm3 (1.96-9.15); NEUTROPHILS PERCENT AUTO 70 % (41-73); NRBC ABSOLUTE 0.00 K/mm3 (0.00-0.02); NRBC Auto 0.0 /100 WBC (0.0-0.2); Platelet Count 105 K/mm3 (150-400); RDW Coefficient Variation 13.3 % (11.7-14.2); RDW Standard Deviation 47.6 fL (35.1-46.3)
[2025-05-07] MEDS ORDERED: Ondansetron HCl 2 MG / ML 2ML Vial IV ONE (12:30)
[2025-05-07 12:57] LABS: Anion Gap 8.0 mmol/L (3-11); Blood Urea Nitrogen 20.0 mg/dL (8-24); CO2, Blood 24.0 mmol/L (21-32); Calcium, Blood 10.5 mg/dL (8.5-10.1); Chloride, Blood 114.0 mmol/L (98-108); Creatinine, Blood 0.87 mg/dL (0.40-1.00); Glucose, Blood 118.0 mg/dL (70-99); Potassium, Blood 3.0 mmol/L (3.5-5.5); Sodium, Blood 143.0 mmol/L (136-145)
[2025-05-07] MEDS ORDERED: NS 1,000 ML IV SCH ×2 (13:25→14:30)
[2025-05-07] MEDS ORDERED: CefTRIAXone Sodium 1,000 MG in NS 100 ML IV ONE (13:30)
[2025-05-07] MEDS ORDERED: FLU VACC TS2025-26(6MOS UP)/PF 45 MCG/0.5 ML SYRINGE IM SCH (14:30)
[2025-05-07] MEDS ORDERED: Potassium Phosphate Dibasic 15 MM in Dextrose 5% 250 ML IV STA (15:21)
[2025-05-07] MEDS ORDERED: Magnesium Sulf 2 GM/Water 50ML 50 ML IV ONE (15:25)
--- NOTE | 2025-05-07 15:29 | NUR ---
1529 CALLED FOR REPORT ON PATIENT, GOT REPORT FROM LANDRY.
[2025-05-07 16:19] VITALS: BP 109/66
[2025-05-07] MEDS ORDERED: Insulin Regular 100 UNIT/ML 10ML Vial SC SCH (16:30)
--- NOTE | 2025-05-07 18:30 | NUR ---
SHIFT SUMMARY PATIENT IS A&OX4, SHE IS ON ROOM AIR AND HAS TELEMETRY. SHE WAS RUNNING SINUS WOOD IN THE ED. SHE IS WEAK AND STAYING IN BED, WE HAVE NOT ATTEMPTED TO GET HER UP. SHE HAS NOT VOIDED SINCE ARRIVING AT THE HOSPTIAL. HAS ATTENDS ON. RECOMMENDING BLADDER SCAN TO COMPANY DOCTOR IF SHE DOESN'T VOID BEFORE CHANGE OF SHIFT. SHE IS CURRENLTY RESTING IN BED, BED IS LOW AND LOCKED, CALL LIGHT IN REACH.
[2025-05-07 19:12] VITALS: BP 99/50
[2025-05-07 19:45] VITALS: BP 94/53
[2025-05-07 19:55] LABS: Source, Urine Clean Catch
[2025-05-07 19:58] LABS: Bilirubin, Urine Neg (Neg); Glucose Qualitative, Urine Neg (Neg); Ketones, Urine Neg (Neg); Leukocyte Esterase, Urine 2+ (Neg); Protein, Urine 1+ (Neg); Specific Gravity, Urine 1.015 (1.003-1.022); Urobilinogen, Urine NORM (Normal)
[2025-05-07 20:05] LABS: Color, Urine Yellow (P-Yellow)
[2025-05-07] MEDS ORDERED: NS 250 ML IV ONE (21:00)
[2025-05-07] MEDS ORDERED: Miconazole Nitrate 2% 85 GM PWD TOP SCH (21:00)
[2025-05-07] MEDS ORDERED: Lactobacil 2-S.Thermo-Bifido 1 1 Cap PO SCH (21:00)
[2025-05-07] MEDS ORDERED: Polyethylene Glycol 3350 17 gm PO SCH (21:00)
[2025-05-07 22:52] VITALS: BP 94/58
[2025-05-07 23:25] VITALS: BP 101/58
[2025-05-08] VITALS (7 sets, daily range): BP systolic 97–122; BP diastolic 55–68
--- NOTE | 2025-05-08 03:41 | NUR ---
SHIFT SUMMARY PATIENT WAS HYPOTENSIVE AND HAD A MAP OF 65 AND HAD FLANK PAIN, DOCTOR MADE AWARE AND MEDICATED PER EMAR, PATIENT IS NOW RESTING WAS ABLE TO GET TO CAMMODE WITH 1 ASSIST. HAD RED IN BODY FOLDS MEDICATED PER EMAR. A&OX4, ABLE TO MAKE NEEDS KNOWN, CALL LIGHT WITHIN REACH, NO DISTRESS NOTED AT THIS TIME. BED RAILS UP X2 AND BED ALARM ON A JUST IN CASE DUE TO PREVIOUS CONFUSION WITH SOME PAIN MEDS.
[2025-05-08] MEDS ORDERED: Potassium Phosphate Dibasic 30 MM in Dextrose 5% 500 ML IV ONE (05:15)
[2025-05-08 05:46] LABS: Alanine Aminotransfer (ALT/SGP 17.0 U/L (12-78); Albumin, Blood 2.3 g/dL (3.4-5.0); Albumin/Globulin Ratio 0.8 (0.8-1.8); Anion Gap 8.0 mmol/L (3-11); Aspartate Aminotrans (AST/SGOT 18.0 U/L (12-37); Bilirubin, Total 0.9 mg/dL (0.1-1.0); Blood Urea Nitrogen 20.0 mg/dL (8-24); CO2, Blood 25.0 mmol/L (21-32); Calcium, Blood 10.4 mg/dL (8.5-10.1); Chloride, Blood 114.0 mmol/L (98-108); Creatinine, Blood 0.95 mg/dL (0.40-1.00); Globulin, Blood 2.9 g/dL (2.2-4.0); Glucose, Blood 89.0 mg/dL (70-99); Potassium, Blood 3.6 mmol/L (3.5-5.5); Sodium, Blood 143.0 mmol/L (136-145); Total Protein, Blood 5.2 g/dL (6.4-8.2)
[2025-05-08 06:04] LABS: BASOPHILS ABSOLUTE AUTO 0.04 K/mm3 (0.00-0.23); BASOPHILS PERCENT AUTO 1 % (0-2); EOSINOPHILS ABSOLUTE AUTO 0.18 K/mm3 (0.00-0.68); EOSINOPHILS PERCENT AUTO 4 % (0-6); Hematocrit 31.8 % (33.0-51.0); Hemoglobin 10.9 g/dL (11.5-16.0); IMMATURE GRAN ABSOLUTE AUTO 0.01 K/mm3 (0.00-0.10); IMMATURE GRAN PERCENT AUTO 0 % (0-1); LYMPHOCYTES ABSOLUTE AUTO 1.00 K/mm3 (0.84-5.20); LYMPHOCYTES PERCENT AUTO 24 % (21-46); MONOCYTES ABSOLUTE AUTO 0.51 K/mm3 (0.16-1.47); MONOCYTES PERCENT AUTO 12 % (4-13); Mean Corpuscular HGB Conc 34.3 g/dL (31.5-36.5); Mean Corpuscular Volume 99 fL (80-100); NEUTROPHILS ABSOLUTE AUTO 2.48 K/mm3 (1.96-9.15); NEUTROPHILS PERCENT AUTO 59 % (41-73); NRBC ABSOLUTE 0.00 K/mm3 (0.00-0.02); NRBC Auto 0.0 /100 WBC (0.0-0.2); Platelet Count 89 K/mm3 (150-400); RDW Coefficient Variation 13.4 % (11.7-14.2); RDW Standard Deviation 48.2 fL (35.1-46.3)
[2025-05-08] MEDS ORDERED: CefTRIAXone Sodium 1,000 MG in NS 100 ML IV SCH (09:00)
[2025-05-08] MEDS ORDERED: Enoxaparin 40 MG/0.4 ML SYR SC SCH (09:00)
[2025-05-08] MEDS ORDERED: NS 1,000 ML IV SCH (11:20)
[2025-05-08] MEDS ORDERED: Ondansetron HCl 2 MG / ML 2ML Vial IV PRN (17:05)
--- NOTE | 2025-05-08 17:29 | NUR ---
SHIFT SUMMARY- PT ALERT AND ORIENTED BUT FORGETFUL. SHE WAS ABLE TO AMBULATE TO THE BATHROOM TODAY, SHE SAT UP IN THE CHAIR AFTER WALKING TO THE BATHROOM THIS EVENING, SHE ATTEMPTED TO HAVE A BM. PT WAS SITTING IN THE CHAIR WAITING FOR DINNER, WHEN SHE SUDDENLY VOMITED 600ML OF PUTRID SMELLING, DARK LIQUID, WITH UNDIGESTED FOOD MIXED IN. AFTER VOMITING SHE SAID SHE NOW FEELS NAUSEATED AND A LITTLE DIZZY. VSS AT THIS TIME. CALLED DR IGLESIAS, PT IS SUPPOSED TO BE ON LACTULOSE TID AND HAS NOT BEEN TAKING IT THAT WAY. ORDERED LACTULOSE NOW. REQUESTED NAUSEA MEDS. ORDER FOR IV ZOFRAN RECIEVED AND ADMINISTERED. DIET CHANGED TO CLEAR LIQUID. WILL GIVE THE LACTULOSE ONCE THE NAUSEA HAS IMPROVED.
[2025-05-08] MEDS ORDERED: Prochlorperazine Edisylate 10 mg Vial IV PRN (20:30)
[2025-05-09] VITALS (8 sets, daily range): BP systolic 96–116; BP diastolic 40–62
--- NOTE | 2025-05-09 07:57 | NUR ---
SHIFT SUMMARY PATIENT A&OX4, ABLE TO MAKE NEEDS KNOWN, BED AT LOWEST LEVEL CALL LIGHT WITHIN REACH. PATIENT HAS BEEN NAUSEATED T/O SHIFT WHEN SHE WAKES UP, CAN GET DIZZY WHEN MOVIUNG TO QUICKLY, QT INTERVAL HAS ELONGATED 0.50 PREVIOUSLY FROM 0.43 AND 0.49. PATIENT HAS BEEN GETTING SOFTER BLOOD PRESSURES T/O THE SHIFT. MAP WAS LAST AT 68 BUT PATIENT HAS SLEPT INTERMITTENTLY. PATIENT STILL HAS HAD NO BM BESIDES A FEW JOHN. PATIENT WAS AT BEDSIDE SITTING UP GETTING BP DONE DURING SHIFT CHANGE AND LOOKING FAR BETTER THAN SHE HAD ALTHOUGH SHE STATED SOME DIZZINESS AND NAUSEA.
[2025-05-09 09:19] LABS: BASOPHILS ABSOLUTE AUTO 0.03 K/mm3 (0.00-0.23); BASOPHILS PERCENT AUTO 1 % (0-2); EOSINOPHILS ABSOLUTE AUTO 0.12 K/mm3 (0.00-0.68); EOSINOPHILS PERCENT AUTO 3 % (0-6); Hematocrit 32.1 % (33.0-51.0); Hemoglobin 11.1 g/dL (11.5-16.0); IMMATURE GRAN ABSOLUTE AUTO 0.01 K/mm3 (0.00-0.10); IMMATURE GRAN PERCENT AUTO 0 % (0-1); LYMPHOCYTES ABSOLUTE AUTO 0.85 K/mm3 (0.84-5.20); LYMPHOCYTES PERCENT AUTO 23 % (21-46); MONOCYTES ABSOLUTE AUTO 0.38 K/mm3 (0.16-1.47); MONOCYTES PERCENT AUTO 10 % (4-13); Mean Corpuscular HGB Conc 34.6 g/dL (31.5-36.5); Mean Corpuscular Volume 98 fL (80-100); NEUTROPHILS ABSOLUTE AUTO 2.30 K/mm3 (1.96-9.15); NEUTROPHILS PERCENT AUTO 62 % (41-73); NRBC ABSOLUTE 0.00 K/mm3 (0.00-0.02); NRBC Auto 0.0 /100 WBC (0.0-0.2); Platelet Count 82 K/mm3 (150-400); RDW Coefficient Variation 13.5 % (11.7-14.2); RDW Standard Deviation 48.1 fL (35.1-46.3)
[2025-05-09] MEDS ORDERED: NS 250 ML IV SCH (09:25)
[2025-05-09 09:43] LABS: Alanine Aminotransfer (ALT/SGP 18.0 U/L (12-78); Albumin, Blood 2.4 g/dL (3.4-5.0); Albumin/Globulin Ratio 0.8 (0.8-1.8); Anion Gap 10.0 mmol/L (3-11); Aspartate Aminotrans (AST/SGOT 20.0 U/L (12-37); Bilirubin, Total 0.8 mg/dL (0.1-1.0); Blood Urea Nitrogen 12.0 mg/dL (8-24); CO2, Blood 24.0 mmol/L (21-32); Calcium, Blood 9.4 mg/dL (8.5-10.1); Chloride, Blood 109.0 mmol/L (98-108); Creatinine, Blood 0.78 mg/dL (0.40-1.00); Globulin, Blood 3.0 g/dL (2.2-4.0); Glucose, Blood 157.0 mg/dL (70-99); Potassium, Blood 3.0 mmol/L (3.5-5.5); Sodium, Blood 140.0 mmol/L (136-145); Total Protein, Blood 5.4 g/dL (6.4-8.2)
--- NOTE | 2025-05-09 19:25 | NUR ---
END OF SHIFT SUMMARY: A&Ox4. PLEASANT AND COOPERATIVE WITH CARE. CALLS APPROPRIATELY AND IS ABLE TO ADVOCATE NEEDS EFFECTIVELY. VSS. TELE STRIP IN CHART REVIEWED AND INTERPRETED SINUS WOOD c FHB, BBB @ 55bpm; NO EVENTS. BREATHING EVEN AND UNLABORED c RA. CONTINENT OF BOWEL AND BLADDER; LBM TODAY. DIET ADVANCED TO REGULAR TEXTURES AND TOLERATING WELL. AMBULATES c 1PA. PT RECOMMENDS SNF. MEDS WHOLE c FLUIDS. POTASSIUM REPLACED TODAY. REFUSED LACTULOSE x2 DUE TO NOT WANTING FURTHER BOWEL MOVEMENTS; PROVIDER AWARE. BED IN LOWEST POSITION, CALL LIGHT WITHIN REACH, ALL NEEDS MET. REPORT TO ONCOMING NURSE.
[2025-05-10 04:07] VITALS: BP 93/54
--- NOTE | 2025-05-10 05:19 | NUR ---
SHIFT SUMMARY: PT AOX4, 1PA TO SP TO THE BSC. HAD MULTIPLE SMALL FORMED BOWEL MOVEMENTS. WAS AGREEABLE TO THE LACTULOSE BUT REFUSED THE OTHER BOWEL CARE. TOLERATING MEDICATIONS WELL. CALLS APPROPRAITELY AND ABLE TO MAKE NEEDS KNOWN. NO ACUTE OVERNIGHT EVENTS. PT IN BED RESTING, BED IN LOWEST POSITION, CALL LIGHT IN REACH. CONTINUING CARE.
[2025-05-10 05:57] LABS: BASOPHILS ABSOLUTE AUTO 0.03 K/mm3 (0.00-0.23); BASOPHILS PERCENT AUTO 1 % (0-2); EOSINOPHILS ABSOLUTE AUTO 0.12 K/mm3 (0.00-0.68); EOSINOPHILS PERCENT AUTO 3 % (0-6); Hematocrit 34.4 % (33.0-51.0); Hemoglobin 11.8 g/dL (11.5-16.0); IMMATURE GRAN ABSOLUTE AUTO 0.01 K/mm3 (0.00-0.10); IMMATURE GRAN PERCENT AUTO 0 % (0-1); LYMPHOCYTES ABSOLUTE AUTO 1.25 K/mm3 (0.84-5.20); LYMPHOCYTES PERCENT AUTO 34 % (21-46); MONOCYTES ABSOLUTE AUTO 0.45 K/mm3 (0.16-1.47); MONOCYTES PERCENT AUTO 12 % (4-13); Mean Corpuscular HGB Conc 34.3 g/dL (31.5-36.5); Mean Corpuscular Volume 98 fL (80-100); NEUTROPHILS ABSOLUTE AUTO 1.84 K/mm3 (1.96-9.15); NEUTROPHILS PERCENT AUTO 50 % (41-73); NRBC ABSOLUTE 0.00 K/mm3 (0.00-0.02); NRBC Auto 0.0 /100 WBC (0.0-0.2); Platelet Count 89 K/mm3 (150-400); RDW Coefficient Variation 13.2 % (11.7-14.2); RDW Standard Deviation 47.2 fL (35.1-46.3)
[2025-05-10 06:31] LABS: Anion Gap 6.0 mmol/L (3-11); Blood Urea Nitrogen 10.0 mg/dL (8-24); CO2, Blood 27.0 mmol/L (21-32); Calcium, Blood 9.6 mg/dL (8.5-10.1); Chloride, Blood 112.0 mmol/L (98-108); Creatinine, Blood 0.76 mg/dL (0.40-1.00); Glucose, Blood 112.0 mg/dL (70-99); Potassium, Blood 3.5 mmol/L (3.5-5.5); Sodium, Blood 141.0 mmol/L (136-145)
[2025-05-10 07:37] VITALS: BP 104/62
[2025-05-10 11:35] VITALS: BP 108/59
[2025-05-10 15:20] VITALS: BP 113/64
[2025-05-10 19:57] VITALS: BP 92/44
[2025-05-10 20:04] VITALS: BP 100/58
[2025-05-11 00:20] VITALS: BP 104/51
[2025-05-11 04:02] VITALS: BP 122/67
--- NOTE | 2025-05-11 04:02 | NUR ---
SHIFT SUMMARY PT A&OX4. ABLE TO MAKE NEEDS KNOWN. PLEASANT AND COOPERATIVE WITH CARES. 1 PE W/ FWW TO BATHROOM. JULIANA PIV. AROUND 23OO PT C/O CHEST PAIN WHICH WAS QUICKLY RESOLVED WITH REPOSITIONING IN BED. NO FURTHER COMPLAINTS SINCE. VSS. BED IN LOWEST POSITION. CALL LIGHT IN REACH. PLAN FOR SN PLACEMENT, PENDING BED AVAILABILITY AND INSURANCE AUTH.
--- NOTE | 2025-05-11 04:06 | NUR ---
SHIFT SUMMARY PT A&OX4. ABLE TO MAKE NEEDS KNOWN. PLEASANT AND COOPERATIVE WITH CARE. INDEPENDENT IN ROOM. LAC PIV/VANCOMYCIN. PT REPORTS PAIN TO ABDOMEN AND VAGINA. MEDICATED PER JUL. ON ROOM AIR. VERY ANXOUS. AT BEGINNING OF SHIFT PT COMPLAINED OF LOWER LIP NUMBNESS WHICH WAS RELIEVED BY SLOWING VANCO INFUSION. LATER IN SHIFT PT C/O FEELING FLUSHED AND HAD 1 EPISODE WHERE HER HEART "FELT FUNNY". NO CHEST PAIN. DISCUSSED WITH HOSPITALIST. PLACED PT IN TELE. DOING WELL NOW. NO COMPLAINTS AT THIS TIME. VSS. BED IN LOWEST POSITION. CALL LIGHT IN REACH. PLAN TO DISCHARGE HOME ONCE TREATMENT COMPLETE.
[2025-05-11 07:41] VITALS: BP 98/42
[2025-05-11 08:30] VITALS: BP 123/54
[2025-05-11 09:59] LABS: Anion Gap 6.0 mmol/L (3-11); Blood Urea Nitrogen 10.0 mg/dL (8-24); CO2, Blood 28.0 mmol/L (21-32); Calcium, Blood 9.6 mg/dL (8.5-10.1); Chloride, Blood 109.0 mmol/L (98-108); Creatinine, Blood 0.65 mg/dL (0.40-1.00); Glucose, Blood 160.0 mg/dL (70-99); Potassium, Blood 3.0 mmol/L (3.5-5.5); Sodium, Blood 140.0 mmol/L (136-145)
[2025-05-11 12:00] VITALS: BP 130/73
[2025-05-11] MEDS ORDERED: Ondansetron 4 MG SoluTab SL ONE (13:00)
[2025-05-11] MEDS ORDERED: LACT10SY PO (13:23)
[2025-05-11] MEDS ORDERED: ACET325 PO (13:24)
--- NOTE | 2025-05-11 16:52 | NUR ---
DISCHARGE NOTE PT EDUCATE DON DISCHARGE PACKET. PACKET PROVIDED FROM [facility]NAGEMENT FOR FACILITY. [employer]ELCHA[employer] TRANSPORT ARRANGED AND PICKED PT UP AT APPROXIMATELY 1648 . IV WAS REMOVED EARLIER THIS SHIFT. TELE REMOVED. PT FEELING ANXIOUS PRIOR TO DISCHARGE BUT CALMED WITH COMMUNICATION ABOUT WHAT TO EXPECT. NO NEW QUESTIONS OR CONCERNS PRIOR TO DC.
== END 2025-05-11 16:46 | DRG 309 ==
LOC: ER 11:04 → MEDS 11:05
PROVIDERS: Student in an Organized Health Care Education/Training Program; ADMIT Internal Medicine
DX: R00.1 Bradycardia, unspecified (principal); K76.6 Portal hypertension; N39.0 Urinary tract infection, site not specified; I48.0 Paroxysmal atrial fibrillation; T44.7X5A Adverse effect of beta-adrenoreceptor antagonists, initial encounter; I95.9 Hypotension, unspecified; E83.52 Hypercalcemia; I10 Essential (primary) hypertension; K74.69 Other cirrhosis of liver; I45.10 Unspecified right bundle-branch block; E87.6 Hypokalemia; E87.8 Other disorders of electrolyte and fluid balance, not elsewhere classified; I44.0 Atrioventricular block, first degree; D64.9 Anemia, unspecified; E83.39 Other disorders of phosphorus metabolism; E83.42 Hypomagnesemia; I25.10 Atherosclerotic heart disease of native coronary artery without angina pectoris; D69.59 Other secondary thrombocytopenia; Z88.0 Allergy status to penicillin; Z79.82 Long term (current) use of aspirin; Z91.81 History of falling; Z86.73 Personal history of transient ischemic attack (TIA), and cerebral infarction without residual deficits; Z86.19 Personal history of other infectious and parasitic diseases; I25.2 Old myocardial infarction
CPT/HCPCS: 36415; 70450; 71045; 72125; 80048; 80053; 81001; 82947; 83605; 83735; 84100; 84443; 85025; 87086; 96365-59; 96375; 97110-CQ; 97116; 97116-CQ; 97161; 97530; 99285-25; A6590; A9270; G0378; J0696; J0780; J1650; J1815; J2405; J3475; J7030; J7040; J7050; J7060

== ENCOUNTER 2025-05-13 10:32 | Emergency (ER) | payer OTHER ==
[~2025-05-13] VITALS: Ht 154.9 cm; Wt 86.2 kg
[~2025-05-13 10:32] MED LIST changes: +ACET325 PO
[2025-05-13 10:56] LABS: BASOPHILS ABSOLUTE AUTO 0.04 K/mm3 (0.00-0.23); BASOPHILS PERCENT AUTO 1 % (0-2); EOSINOPHILS ABSOLUTE AUTO 0.16 K/mm3 (0.00-0.68); EOSINOPHILS PERCENT AUTO 4 % (0-6); Hematocrit 37.5 % (33.0-51.0); Hemoglobin 12.9 g/dL (11.5-16.0); IMMATURE GRAN ABSOLUTE AUTO 0.01 K/mm3 (0.00-0.10); IMMATURE GRAN PERCENT AUTO 0 % (0-1); LYMPHOCYTES ABSOLUTE AUTO 1.25 K/mm3 (0.84-5.20); LYMPHOCYTES PERCENT AUTO 28 % (21-46); MONOCYTES ABSOLUTE AUTO 0.70 K/mm3 (0.16-1.47); MONOCYTES PERCENT AUTO 16 % (4-13); Mean Corpuscular HGB Conc 34.4 g/dL (31.5-36.5); Mean Corpuscular Volume 98 fL (80-100); NEUTROPHILS ABSOLUTE AUTO 2.35 K/mm3 (1.96-9.15); NEUTROPHILS PERCENT AUTO 52 % (41-73); NRBC ABSOLUTE 0.00 K/mm3 (0.00-0.02); NRBC Auto 0.0 /100 WBC (0.0-0.2); Platelet Count 121 K/mm3 (150-400); RDW Coefficient Variation 13.5 % (11.7-14.2); RDW Standard Deviation 48.2 fL (35.1-46.3)
[2025-05-13 11:16] LABS: Alanine Aminotransfer (ALT/SGP 24.0 U/L (12-78); Albumin, Blood 2.8 g/dL (3.4-5.0); Albumin/Globulin Ratio 0.8 (0.8-1.8); Anion Gap 7.0 mmol/L (3-11); Aspartate Aminotrans (AST/SGOT 29.0 U/L (12-37); Bilirubin, Total 0.9 mg/dL (0.1-1.0); Blood Urea Nitrogen 10.0 mg/dL (8-24); CO2, Blood 26.0 mmol/L (21-32); Calcium, Blood 9.5 mg/dL (8.5-10.1); Chloride, Blood 110.0 mmol/L (98-108); Creatinine, Blood 0.7 mg/dL (0.40-1.00); Globulin, Blood 3.5 g/dL (2.2-4.0); Glucose, Blood 96.0 mg/dL (70-99); Potassium, Blood 3.6 mmol/L (3.5-5.5); Sodium, Blood 139.0 mmol/L (136-145); Total Protein, Blood 6.3 g/dL (6.4-8.2)
[2025-05-13] MEDS ORDERED: Ondansetron HCl 2 MG / ML 2ML Vial IV ONE (11:40)
[2025-05-13 14:30] VITALS: BP 120/68
== END 2025-05-13 15:03 | disposition home or self-care (01) ==
LOC: ER 10:32
PROVIDERS: Emergency Medicine
DX: I45.10 Unspecified right bundle-branch block (principal); R00.1 Bradycardia, unspecified; I10 Essential (primary) hypertension; E11.40 Type 2 diabetes mellitus with diabetic neuropathy, unspecified; Z86.73 Personal history of transient ischemic attack (TIA), and cerebral infarction without residual deficits; Z79.82 Long term (current) use of aspirin; Z79.899 Other long term (current) drug therapy; Z88.0 Allergy status to penicillin
CPT/HCPCS: 71046; 80053; 83690; 83880; 84484; 85025; 93005; 93010; 96374; 99285-25; J2405

== ENCOUNTER 2025-05-17 11:18 | Emergency (ER) | payer OTHER ==
[~2025-05-17] VITALS: Ht 152.4 cm; Wt 86.2 kg
[2025-05-17 11:51] LABS: BASOPHILS ABSOLUTE AUTO 0.03 K/mm3 (0.00-0.23); BASOPHILS PERCENT AUTO 1 % (0-2); EOSINOPHILS ABSOLUTE AUTO 0.14 K/mm3 (0.00-0.68); EOSINOPHILS PERCENT AUTO 4 % (0-6); Hematocrit 36.0 % (33.0-51.0); Hemoglobin 12.5 g/dL (11.5-16.0); IMMATURE GRAN ABSOLUTE AUTO 0.01 K/mm3 (0.00-0.10); IMMATURE GRAN PERCENT AUTO 0 % (0-1); LYMPHOCYTES ABSOLUTE AUTO 1.09 K/mm3 (0.84-5.20); LYMPHOCYTES PERCENT AUTO 28 % (21-46); MONOCYTES ABSOLUTE AUTO 0.63 K/mm3 (0.16-1.47); MONOCYTES PERCENT AUTO 16 % (4-13); Mean Corpuscular HGB Conc 34.7 g/dL (31.5-36.5); Mean Corpuscular Volume 98 fL (80-100); NEUTROPHILS ABSOLUTE AUTO 1.95 K/mm3 (1.96-9.15); NEUTROPHILS PERCENT AUTO 51 % (41-73); NRBC ABSOLUTE 0.00 K/mm3 (0.00-0.02); NRBC Auto 0.0 /100 WBC (0.0-0.2); Platelet Count 107 K/mm3 (150-400); RDW Coefficient Variation 13.5 % (11.7-14.2); RDW Standard Deviation 49.2 fL (35.1-46.3)
[2025-05-17] MEDS ORDERED: Morphine Sulfate 4 MG/1 ML Injection IV ONE (11:55)
[2025-05-17 12:04] LABS: Alanine Aminotransfer (ALT/SGP 23.0 U/L (12-78); Albumin, Blood 2.8 g/dL (3.4-5.0); Albumin/Globulin Ratio 0.8 (0.8-1.8); Anion Gap 8.0 mmol/L (3-11); Aspartate Aminotrans (AST/SGOT 28.0 U/L (12-37); Bilirubin, Total 0.9 mg/dL (0.1-1.0); Blood Urea Nitrogen 12.0 mg/dL (8-24); CO2, Blood 25.0 mmol/L (21-32); Calcium, Blood 9.3 mg/dL (8.5-10.1); Chloride, Blood 112.0 mmol/L (98-108); Creatinine, Blood 0.7 mg/dL (0.40-1.00); Globulin, Blood 3.5 g/dL (2.2-4.0); Glucose, Blood 105.0 mg/dL (70-99); Potassium, Blood 3.7 mmol/L (3.5-5.5); Sodium, Blood 141.0 mmol/L (136-145); Total Protein, Blood 6.3 g/dL (6.4-8.2)
[2025-05-17] MEDS ORDERED: Ondansetron HCl 2 MG / ML 2ML Vial IV ONE (12:15)
[2025-05-17 12:16] LABS: Magnesium, Blood 1.4 mg/dL (1.6-2.4)
[2025-05-17] MEDS ORDERED: Magnesium Sulf 2 GM/Water 50ML 50 ML IV ONE (12:20)
[2025-05-17 13:51] LABS: Source, Urine Clean Catch
[2025-05-17 14:13] LABS: Bilirubin, Urine Neg (Neg); Glucose Qualitative, Urine Neg (Neg); Ketones, Urine Neg (Neg); Leukocyte Esterase, Urine 2+ (Neg); Protein, Urine 2+ (Neg); Specific Gravity, Urine 1.010 (1.003-1.022); Urobilinogen, Urine 1+ (Normal)
[2025-05-17 14:36] LABS: Color, Urine Pale Yellow (P-Yellow)
[2025-05-17] MEDS ORDERED: SENN187 PO (15:46)
[2025-05-17] MEDS ORDERED: COMPAZINE10 MG PO (15:46)
[2025-05-17 17:17] VITALS: BP 119/67
== END 2025-05-17 17:18 | disposition home or self-care (01) ==
LOC: ER 11:18
PROVIDERS: Emergency Medicine
DX: M54.9 Dorsalgia, unspecified (principal); R11.0 Nausea; K59.00 Constipation, unspecified; Z86.73 Personal history of transient ischemic attack (TIA), and cerebral infarction without residual deficits; E11.40 Type 2 diabetes mellitus with diabetic neuropathy, unspecified; I10 Essential (primary) hypertension; Z79.82 Long term (current) use of aspirin; Z79.899 Other long term (current) drug therapy; Z88.0 Allergy status to penicillin
CPT/HCPCS: 71045; 80053; 81001; 83690; 83735; 84484; 85025; 93005; 93010; 96365; 96375; 99285-25; J2270; J2405; J3475

== ENCOUNTER 2025-05-25 06:56 | Emergency (ER) | payer OTHER ==
[~2025-05-25] VITALS: Ht 152.4 cm; Wt 89.4 kg
[~2025-05-25 06:56] MED LIST changes: +COMPAZINE10 MG PO; +SENN187 PO
[2025-05-25] MEDS ORDERED: Methyl Salicylate/Menth/Camph 57 GM TUBE TOP ONE (07:25)
[2025-05-25] MEDS ORDERED: Ketorolac Tromethamine 30mg Vial IM ONE (07:25)
[2025-05-25] MEDS ORDERED: MELA3 PO (07:45)
[2025-05-25] MEDS ORDERED: IBUP600 PO (07:46)
[2025-05-25] MEDS ORDERED: ONDA4 PO (07:46)
[2025-05-25 08:21] LABS: Source, Urine Clean Catch
[2025-05-25 08:24] LABS: Bilirubin, Urine Neg (Neg); Color, Urine Yellow (P-Yellow); Glucose Qualitative, Urine Neg (Neg); Ketones, Urine Neg (Neg); Leukocyte Esterase, Urine 2+ (Neg); Protein, Urine 1+ (Neg); Specific Gravity, Urine 1.010 (1.003-1.022); Urobilinogen, Urine 1+ (Normal)
[2025-05-25] MEDS ORDERED: Nitrofurantoin/Nitrofuran Mac 100 MG Cap PO ONE (09:10)
[2025-05-25] MEDS ORDERED: Robaxin750 MG PO ×2 (09:14→09:55)
[2025-05-25] MEDS ORDERED: METSALMENC TOP ×2 (09:14→09:54)
[2025-05-25] MEDS ORDERED: NITR100CA PO ×2 (09:14→09:55)
[2025-05-25 10:20] VITALS: BP 110/44
== END 2025-05-25 10:25 | disposition home or self-care (01) ==
LOC: ER 06:56
PROVIDERS: Student in an Organized Health Care Education/Training Program
DX: N39.0 Urinary tract infection, site not specified (principal); E11.9 Type 2 diabetes mellitus without complications; I10 Essential (primary) hypertension; Z88.0 Allergy status to penicillin; Z79.899 Other long term (current) drug therapy; Z79.82 Long term (current) use of aspirin
CPT/HCPCS: 72100; 81001; 87086; 96372; 99284-25; A6590; A9270; J1885